=== PATIENT | female | born 1945 | race Caucasian/White ===

== ENCOUNTER 2017-08-30 21:42 | Inpatient (IN) | payer MEDICARE ==
[~2017-08-30] VITALS: Ht 162.6 cm; Wt 118.9 kg
[~2017-08-30 21:42] MED LIST: AMITRIPTYLINE H25 MG PO; AMLODIPINE BESY10 MG PO; GEMFIBROZIL600 MG; HYDRALAZINE HCL25 MG PO; LABETALOL HCL100 MG PO; LORATADINE10 MG PO; LOSARTAN POTASS25 MG PO; METFORMIN HCL500 MG PO; METOPROLOL TART50 MG PO; NIFEDIPINE ER30 M1 PO; OMEPRAZOLE20 MG PO
[2017-08-30] MEDS ORDERED: ONDANSETRON HCL INJ 2 MG/ML VIAL IV STA (22:01)
[2017-08-30] MEDS ORDERED: MORPHINE SULFATE 2 MG/ML SYR IV STA (22:01)
[2017-08-30 23:24] LABS: BASOPHILS % 0.3 % (0.0-1.0); EOSINOPHILS # (AUTO) 0.1 (0.0-0.4); EOSINOPHILS % 0.3 % (0.0-6.0); HEMATOCRIT 42.6 % (34.2-44.1); HEMOGLOBIN 14.1 g/dL (12.0-16.0); LYMPHOCYTES # (AUTO) 1.6 (1.0-3.2); LYMPHOCYTES % 10.2 % (18.0-39.1); MEAN CORPUSCULAR HEMOGLOBIN 27.5 pg (28-32); MEAN CORPUSCULAR HGB CONC 33.1 g/dL (31-35); MEAN CORPUSCULAR VOLUME 83.2 fL (81-99); MONOCYTES # (AUTO) 0.4 (0.2-0.8); MONOCYTES % 2.4 % (4.4-11.3); NEUTROPHILS # (AUTO) 13.3 (2.1-6.9); NEUTROPHILS % 86.3 % (38.7-80.0); PLATELET COUNT 280 x10e3/uL (140-360); RED BLOOD COUNT 5.12 x10e6/uL (3.6-5.1); RED CELL DISTRIBUTION WIDTH 13.5 % (11.7-14.4)
[2017-08-30 23:39] LABS: INR 1.23; PROTHROMBIN TIME 14.6 seconds (11.9-14.5)
[2017-08-30 23:40] LABS: PARTIAL THROMBOPLASTIN TIME 26.9 seconds (23.8-35.5)
--- NOTE | 2017-08-30 23:44 | Diagnostic Imaging Report ---
EXAMINATION: Head CT without contrast. HISTORY:Fall. COMPARISON:CT brain from 05/12/2016. TECHNIQUE: Multidetector axial images were obtained from the foramen magnum to the vertex without contrast. The images were reconstructed using brain and bone algorithms. Thin section brain images were reformatted into coronal and sagittal planes. Intravenous contrast: None IMAGE QUALITY: Acceptable. FINDINGS: Skull/scalp: No lytic or blastic. lesions. No surgical changes. Parenchyma: Unchanged multifocal lacunar infarcts particularly bilateral striata capsular region, left posterior limb of internal capsule, left caudate head, kimble radiata and bilateral centrum semiovale. Nonspecific bilateral frontoparietal patchy white matter hypodensity are likely related to small vessel ischemic changes. No acute hemorrhage, mass or acute major vascular territorial infarct. Arteries: No density suggestive of thrombosis. Dural sinuses: No abnormal density suggestive of thrombosis. Ventricles: Mild compensated dilatation due to volume loss. No hydrocephalus. Extra-axial spaces: Generalized age-related cerebral volume loss. Brain volume: Normal for age. Craniocervical junction: No mass, Chiari malformation, or basilar invagination. Sella: No mass. Paranasal/mastoid sinuses: Imaged portions unremarkable. IMPRESSION: No acute intracranial abnormality. No change since CT brain from 05/12/2016. Chronic findings: 1. Multifocal chronic lacunar infarcts as detailed above. 2. Mild supratentorial white matter microvascular ischemic changes. 3. Mild generalized cerebral volume loss. Signed by: Dr. Hillary Gary M.D. on 08/30/2017 11:40 PM
--- NOTE | 2017-08-30 23:49 | Diagnostic Imaging Report ---
History: Fall. Comparison studies: None Technique: Axial images were obtained through the cervical region.. Coronal and sagittal images reconstructed from the axial data.. Intravenous contrast: None Findings: Fractures: None. Soft tissue injuries: None. Atlantoaxial articulation: Intact. Alignment: Loss of normal cervical lordosis is either positional or due to muscle spasm. No scoliosis. Cervicomedullary junction: No abnormalities. The foramen magnum is patent. Soft tissues: No abnormalities. Vertebrae: No fractures, infection or neoplasm. Degenerative changes: C4-C5: Mild degenerative disc disease. Mild right foraminal stenosis due to uncovertebral arthrosis. C5-C6: Moderate degenerative disc disease. Posterior disc osteophyte complex results in mild canal stenosis. Mild right and moderate left foraminal stenosis due to facet and uncovertebral arthrosis. IMPRESSION: 1. No acute cervical spine fracture. Loss of normal cervical lordosis is either positional or due to muscle spasm. 2. Ligament, spinal cord and or vascular abnormalities cannot be excluded on the basis of this examination. 3. Cervical spondylosis as detailed above. Signed by: Dr. Hillary Gary M.D. on 08/30/2017 11:46 PM
[2017-08-30 23:50] LABS: ALANINE AMINOTRANSFERASE 13 IU/L (0-55); ALBUMIN 3.8 g/dL (3.5-5.0); ALBUMIN/GLOBULIN RATIO 1.2 (0.8-2.0); ALKALINE PHOSPHATASE 65 IU/L (40-150); ANION GAP 15.8 mmol/L (8-16); BLOOD UREA NITROGEN 23 mg/dL (7-26); BUN/CREATININE RATIO 22 (6-25); CALCIUM 10.1 mg/dL (8.4-10.2); CARBON DIOXIDE 23 mmol/L (22-29); CHLORIDE 104 mmol/L (98-107); CREATINE KINASE 28 IU/L (29-168); CREATININE, SERUM 1.03 mg/dL (0.57-1.11); EST GLOMERULAR FILTRATION RATE 53 ML/MIN (60-); GLUCOSE 162 mg/dL (74-118); MAGNESIUM 1.9 MG/DL (1.3-2.1); POTASSIUM 3.8 mmol/L (3.5-5.1); SODIUM 139 mmol/L (136-145)
--- NOTE | 2017-08-30 23:57 | Diagnostic Imaging Report ---
EXAM: SHOULDER RIGHT COMPLETE, AP internal and external rotation INDICATION: Fall, right shoulder pain COMPARISON: Right shoulder x-ray May 12, 2016 FINDINGS: BONES: Acute fracture of the right humeral neck with extension through the greater tubercle with displacement. JOINTS: Inferior displacement of the humeral head in relation to the glenoid. SOFT TISSUES: Normal IMPRESSION: Acute fracture of the right humeral neck with extension through the greater tubercle with displacement. Inferior displacement of the humeral head in relation to the glenoid could be due to dislocation or extensive joint effusion/hemarthrosis. Signed by: Dr. Essie Arce M.D. on 08/30/2017 11:54 PM
--- NOTE | 2017-08-30 23:59 | Diagnostic Imaging Report ---
EXAM: CHEST 2 VIEWS, PA and lateral INDICATION: Status post fall, right shoulder pain COMPARISON: Right shoulder x-ray August 30, 2017 FINDINGS: LINES/TUBES: None LUNGS: No consolidations or edema. Bibasilar linear scarring or atelectasis. PLEURA: No effusions or pneumothorax. HEART AND MEDIASTINUM: Mild cardiomegaly. BONES AND SOFT TISSUES: Partially visualized inferior displacement of the right humeral head in relation to the glenoid. Right humeral neck fracture better seen on dedicated shoulder x-ray. IMPRESSION: Mild cardiomegaly. Partially visualized inferior displacement of the right humeral head in relation to the glenoid. Right humeral neck fracture better seen on dedicated shoulder x-ray. Signed by: Dr. Essie Arce M.D. on 08/30/2017 11:56 PM
[2017-08-31] MEDS ORDERED: MORPHINE SULFATE 2 MG/ML SYR IV STA (01:07)
[2017-08-31] MEDS ORDERED: ONDANSETRON HCL INJ 2 MG/ML VIAL IV STA (01:07)
[2017-08-31 02:14] LABS: CLARITY,URINE CLOUDY (CLEAR); COLOR,URINE YELLOW (YELLOW); KETONES,URINE 3+ (NEGATIVE); LEUKOCYTE ESTERASE ,URINE NEGATIVE (NEGATIVE); NITRITE,URINE NEGATIVE (NEGATIVE); PROTEIN,URINE DIPSTICK 1+ (NEGATIVE); URINE UROBILINOGEN 0.2 mg/dL (0.2 - 1)
[2017-08-31 02:15] LABS: BILIRUBIN,URINE 1+ (NEGATIVE)
[2017-08-31] MEDS: HYDROMORPHONE 1MG/1ML INJ IV PRN ×4 (02:25→21:23)
[2017-08-31 02:33] LABS: AMORPHOUS SEDIMENT,URINE MANY (FEW); BACTERIA,URINE RARE /HPF; EPITHELIAL CELLS,URINE RARE /LPF
[2017-08-31] MEDS ORDERED: FAMOTIDINE 20 MG/2 ML VIAL IV SCH (02:45)
[2017-08-31] MEDS ORDERED: DEXTROSE 50% SYRINGE 50 ML IV PRN (02:45)
[2017-08-31 04:32] VITALS: BP 162/90
[2017-08-31] MEDS: INSULIN REGULAR, HUMAN 100 UNIT/1 ML 3ML VIAL SQ SCH ×4 (07:30→22:09)
[2017-08-31 07:32] VITALS: BP 139/77
[2017-08-31 07:41] LABS: CREATINE KINASE MB 0.6 ng/mL (0-5.0)
[2017-08-31 07:45] VITALS: BP 139/77
[2017-08-31] MEDS ORDERED: GEMFIBROZIL 600 MG TAB PO SCH (08:00)
[2017-08-31] MEDS: FAMOTIDINE 20 MG/2 ML VIAL IV SCH ×2 (08:00→20:34)
--- NOTE | 2017-08-31 08:48 | Consultation ---
DATE OF CONSULTATION: August 31, 2017 CHIEF COMPLAINT: Right arm pain. HISTORY OF PRESENT ILLNESS: The patient is a 72-year-old lady who states that she fell in her kitchen. She was unable to get up. She lives with her sister. Her sister was unable to lift her up as well. She was brought into the emergency room complaining of isolated right shoulder pain. She was admitted for apparent pain control. PAST MEDICAL HISTORY: Borderline diabetic and hypertension. PREVIOUS SURGERIES: Hysterectomy and tonsillectomy. MEDICATIONS: See admission medicine reconciliation list. ALLERGIES: PENICILLIN AND ENALAPRIL. SOCIAL HISTORY: She lives with her sister. She is . She has 2 sons. She does not smoke but was a former smoker. She occasionally drinks alcohol. PHYSICAL EXAMINATION: She is an obese female who is in no obvious distress if her right arm is in a sling. There is swelling and some mild bruising around the proximal arm. Distal motor and sensory exam is grossly normal. We did not test the motion. LABORATORY STUDIES: X-rays show a 4-part comminuted right proximal humerus fracture. IMPRESSION: Right proximal humerus fracture. The findings and treatment options were discussed with the patient. This is a challenging fracture considering her size. The standard of care is to allow the swelling to diminish and to electively proceed with a right shoulder hemiarthroplasty. The risks and benefits of the procedure were explained. Permanent limitations in range of motion were explained. The patient states she understands. I have given her my clinic information. She will need to come to see me in the office early next week for scheduling the surgery within the next week or 2. Thank you for the consultation. Job#: [id number]
[2017-08-31] MEDS ORDERED: LOSARTAN POTASSIUM 25 MG TAB PO SCH (09:00)
[2017-08-31] MEDS ORDERED: LABETALOL HCL 100 MG TAB PO SCH (09:00)
[2017-08-31] MEDS ORDERED: HYDRALAZINE HCL 25 MG TAB PO SCH (09:00)
[2017-08-31] MEDS ORDERED: NIFEDIPINE CR 30 MG TAB PO SCH (09:00)
[2017-08-31] MEDS: LORATADINE 10 MG TAB PO SCH (09:27)
[2017-08-31] MEDS: PANTOPRAZOLE SOD 40 MG TABEC PO SCH (09:28)
[2017-08-31] MEDS ORDERED: LABETALOL HCL200 MG PO (10:13)
[2017-08-31] MEDS ORDERED: GABAPENTIN100 MG PO (10:13)
[2017-08-31] MEDS ORDERED: PRAVASTATIN SOD20 MG PO (10:13)
[2017-08-31] MEDS ORDERED: XAREL PO (10:25)
--- NOTE | 2017-08-31 11:39 | Consultation ---
DATE OF CONSULTATION: August 31, 2017 CARDIOLOGY CONSULTATION Thank you so much for asking me to see this nice lady again in consultation. Ms. Mullins is a charming, 72-year-old woman known to me from previous evaluations in the office, who presented to the emergency room after falling in her kitchen and fracturing her right shoulder. HISTORY OF PRESENT ILLNESS: The patient reports that she slipped on some liquid on the floor and extended her right arm to catch herself and "heard it snap." She denies any syncope. PAST MEDICAL HISTORY: Significant for hypertension and type-2 adult-onset diabetes. She was hospitalized at [facility] in April of 2016 with diagnoses of hypertensive encephalopathy, rhabdomyolysis, renal insufficiency, type-2 adult-onset diabetes. HOME MEDICATIONS: Please see the chart. The patient cannot remember her home medications. SURGICAL HISTORY: She reports a remote appendectomy. REVIEW OF SYSTEMS: Cardiac: The current chart indicates a history of AFib taking Xarelto, but the patient cannot confirm this for me, and my office records are not currently available. PHYSICAL EXAMINATION GENERAL: Exam at this time shows a large, obese woman who is 5 feet 4 inches tall and weighs 254 pounds. VITALS: Blood pressure 139/77. HEENT: Unremarkable. NECK: No jugular venous distention. THORAX: Heart sounds S1 and S2 are equal. No murmurs, gallops or rubs. Lungs are clear. ABDOMEN: Markedly protuberant. EXTREMITIES: No cyanosis, clubbing or edema. Presenting EKG: Probably sinus rhythm but baseline artifact precludes good diagnosis. Cannot entirely exclude atrial fibrillation. BUN 23, creatinine 1.0. Glucose 162. Hemoglobin 14.1. INR 1.23. X-ray suggests complex fracture of the right shoulder. ASSESSMENT 1. Complex shoulder fracture. 2. Hypertension. 3. Currently not in atrial fibrillation as telemetry strips and new EKG show sinus rhythm. 4. Diabetes. PLAN: I believe she has standard surgical risks. Will review office records when the computer system is working. Thank you for asking me to see her in consultation. Job#: [id number]
[2017-08-31 11:54] VITALS: BP 129/59
[2017-08-31] MEDS ORDERED: ASPIRIN81 MG PO (12:58)
[2017-08-31] MEDS ORDERED: IBANDRONATE SO150 MG PO (12:58)
[2017-08-31] MEDS ORDERED: FAMOTIDINE20 MG PO (12:58)
[2017-08-31] MEDS ORDERED: PROAIR HFA INH8.5 GM INH (12:58)
[2017-08-31] MEDS ORDERED: XARELTO20 MG PO (12:58)
[2017-08-31] MEDS: GABAPENTIN 100 MG CAP PO SCH ×2 (14:45→20:34)
[2017-08-31 15:33] LABS: CREATINE KINASE MB 0.5 ng/mL (0-5.0)
[2017-08-31 16:10] VITALS: BP 118/61
[2017-08-31] MEDS: LABETALOL HCL 200 MG TAB PO SCH (16:39)
--- NOTE | 2017-08-31 17:13 | History and Physical ---
CHIEF COMPLAINT: Fall with right shoulder pain. HISTORY OF PRESENT ILLNESS: This is a 72-year-old woman with a history of ambulatory dysfunction using a walker and paroxysmal atrial fibrillation on Xarelto, now having hurrying to the bathroom, lost her urine, and while still in the kitchen slipped on her own urine falling onto her right shoulder with immediate pain. She came to the hospital and she was found to have fracture and dislocation. She was admitted for further evaluation and management. PAST MEDICAL HISTORY: Diabetes mellitus type 2, hypertension, hypertensive emergency, hypertensive encephalopathy, peripheral neuropathy, diabetic neuropathy, rhabdomyolysis, physical deconditioning and altered mood, sleep deprivation, morbid obesity, electrolyte derangement, culture-negative urinary tract infection, brain lacunar infarct , abnormal gait due to impairment of balance, autonomic instability, skin moles, sleep apnea with CPAP at night, hyperlipidemia, borderline low vitamin B12 level, osteoporosis in November 2016 and paroxysmal atrial fibrillation in March 2017. PAST SURGICAL HISTORY: Hysterectomy in 2014. ALLERGIES: PER ELECTRONIC MEDICAL RECORDS. FAMILY/SOCIAL HISTORY: The patient is . She lives with her sister. She has 2 children. No alcohol, illicits or cigarettes. Mother had leukemia and is . Father had Parkinson disease and is . MEDICATIONS: Per electronic medical records. REVIEW OF SYSTEMS: Denies any dizziness, chest pain, shortness of breath, fever or chills or sweats, no nausea, vomiting or diarrhea, headache, blurry vision. PHYSICAL EXAMINATION VITAL SIGNS: Have been reviewed. GENERAL APPEARANCE: A tired-appearing woman resting in the bed. HEENT: Anicteric. Pupils responsive to light. No oral lesions. CARDIOVASCULAR: Normal S1 and S2. LUNGS: Moderate breath sounds, ABDOMEN: Soft and nontender. Nondistended. EXTREMITIES: She has her right arm in sling. She has right shoulder tenderness. No edema of the lower extremities. SKIN: Dry. PSYCHIATRIC: Flat affect. LABS: Reviewed. MEDICATIONS: Reviewed. ASSESSMENT: A 72-year-old woman. 1. Acute right shoulder fracture. 2. Acute right shoulder dislocation. 3. Acute kidney injury. 4. Chronic brain infarct. 5. Ambulatory/gait disturbance. 6. Paroxysmal atrial fibrillation. 7. Diabetes mellitus type 2. 8. Hypertension. 9. Gastroesophageal reflux disease. 10. Sleep apnea on CPAP at night. 11. Osteoporosis on bisphosphonate. 12. Diabetic neuropathy/peripheral neuropathy. PLAN: 1. Pain control. 2. Orthopedic consultation. 3. She took Xarelto last night, will need to wait prior to surgery. 4. Cardiology consultation for preoperative evaluation. 5. Rate control with medication. 6. CPAP at night. 7. Gabapentin for peripheral neuropathy. 8. Will need to continue bisphosphonate once she is discharged for continued treatment of osteoporosis and also calcium, will add calcium with vitamin D. 9. Will obtain hemoglobin A1c and lipid panel. 10. Will consult Dr. Mcmahon for possible inpatient rehab services. Job#: [id number] GH
[2017-08-31 20:00] VITALS: BP 135/66
[2017-08-31] MEDS: PRAVASTATIN 20 MG TAB PO SCH (20:35)
[2017-08-31] MEDS: OYST-CAL-D 500MG TABLET PO SCH (20:35)
[2017-09-01] VITALS (8 sets, daily range): BP systolic 138–195; BP diastolic 69–87
[2017-09-01] MEDS: HYDROMORPHONE 1MG/1ML INJ IV PRN ×4 (01:22→19:54)
[2017-09-01 05:43] LABS: BASOPHILS % 0.4 % (0.0-1.0); EOSINOPHILS # (AUTO) 0.1 (0.0-0.4); EOSINOPHILS % 0.6 % (0.0-6.0); HEMATOCRIT 34.8 % (34.2-44.1); HEMOGLOBIN 11.6 g/dL (12.0-16.0); LYMPHOCYTES # (AUTO) 3.2 (1.0-3.2); LYMPHOCYTES % 31.2 % (18.0-39.1); MEAN CORPUSCULAR HEMOGLOBIN 28.4 pg (28-32); MEAN CORPUSCULAR HGB CONC 33.3 g/dL (31-35); MEAN CORPUSCULAR VOLUME 85.1 fL (81-99); MONOCYTES # (AUTO) 0.9 (0.2-0.8); MONOCYTES % 8.4 % (4.4-11.3); NEUTROPHILS # (AUTO) 6.1 (2.1-6.9); NEUTROPHILS % 58.9 % (38.7-80.0); PLATELET COUNT 230 x10e3/uL (140-360); RED BLOOD COUNT 4.09 x10e6/uL (3.6-5.1); RED CELL DISTRIBUTION WIDTH 14.3 % (11.7-14.4)
[2017-09-01 07:16] LABS: ALBUMIN 3.2 g/dL (3.5-5.0); ALBUMIN/GLOBULIN RATIO 1.1 (0.8-2.0); CALCIUM 9.5 mg/dL (8.4-10.2); CHOL/HDL RATIO 3.7 (3.0-3.6); CREATININE, SERUM 2.71 mg/dL (0.57-1.11)
[2017-09-01] MEDS: PANTOPRAZOLE SOD 40 MG TABEC PO SCH (07:55)
[2017-09-01] MEDS: INSULIN REGULAR, HUMAN 100 UNIT/1 ML 3ML VIAL SQ SCH ×4 (07:55→21:24)
[2017-09-01] MEDS: GABAPENTIN 100 MG CAP PO SCH ×3 (08:36→21:18)
[2017-09-01] MEDS: FAMOTIDINE 20 MG/2 ML VIAL IV SCH ×2 (08:36→21:18)
[2017-09-01] MEDS: LORATADINE 10 MG TAB PO SCH (08:36)
[2017-09-01] MEDS: OYST-CAL-D 500MG TABLET PO SCH ×3 (08:36→21:18)
[2017-09-01] MEDS: LABETALOL HCL 200 MG TAB PO SCH ×2 (08:36→17:00)
[2017-09-01] MEDS ORDERED: LOSARTAN POTASSIUM 25 MG TAB PO SCH (09:00)
[2017-09-01] MEDS ORDERED: LOSARTAN POTASSIUM 100 MG TAB PO SCH (09:00)
[2017-09-01] MEDS: ONDANSETRON HCL INJ 2 MG/ML VIAL IV PRN ×3 (09:11→19:54)
[2017-09-01] MEDS ORDERED: SODIUM CHLORIDE 0.45% 1,000 ML IV ONE (13:45)
[2017-09-01] MEDS: SODIUM CHLORIDE 0.9% 1000ML 1,000 ML IV SCH (17:00)
--- NOTE | 2017-09-01 17:57 | Progress Note ---
DATE: September 01, 2017 PROGRESS NOTE TIME OF SERVICE: 05:00 p.m. SUBJECTIVE: Overnight, no events. Pain is controlled, is about 5/10. REVIEW OF SYSTEMS: Denies any dizziness, chest pain, shortness of breath. Denies any fever, chills, sweats. Denies any back pain, headache. PHYSICAL EXAMINATION VITAL SIGNS: Have been reviewed. Blood pressure 188/74, now 138/96. GENERAL APPEARANCE: A tired-appearing woman resting in bed. HEENT: Anicteric. CARDIOVASCULAR: Normal S1, S2. LUNGS: She has moderate breath sounds. ABDOMEN: Soft, nontender, nondistended. EXTREMITIES: She has right arm in a sling. She has right shoulder tenderness. She had no edema of the lower extremities. SKIN: Dry. PSYCHIATRIC: Flat affect. LABS: Reviewed. MEDICATIONS: Reviewed. ASSESSMENT: A 72-year-old woman 1. Acute right shoulder fracture. 2. Acute right shoulder dislocation. 3. Acute kidney injury. 4. Chronic brain infarct. 5. Ambulatory/gait disturbance. 6. Hypersomnolence. 7. Paroxysmal atrial fibrillation. 8. Diabetes mellitus type 2. 9. Hypertension. 10. Sleep apnea on CPAP at night. 11. Osteoporosis on bisphosphonate. 12. Diabetic neuropathy/peripheral neuropathy. PLAN 1. Continue pain control. 2. Continue medication management. 3. Continue to hold Xarelto. 4. Continue CPAP at night. 5. Will need continue treatment for osteoporosis once discharged. 6. Continue calcium with vitamin D. 7. Leukocytosis has resolved. 8. Start IV fluids normal saline at 100 mL now and followup labs data this evening for acute kidney injury. 9. Blood pressure control. We will titrate beta darnell and other medications. 10. Control pain. 11. Continue PPI. 12. Would benefit from acute rehab unit after management of fracture. Job#: [id number] DEREJE
--- NOTE | 2017-09-01 18:30 | Consultation ---
DATE OF CONSULTATION: September 01, 2017 Thank you, Dr. Colbert, for asking me to see Mrs. Mullins in consultation. REASON FOR CONSULTATION 1. A 4-part comminuted right proximal humeral fracture. 2. Obesity. 3. Hypertension. 4. Borderline diabetic. HISTORY: A 72-year-old female who fell in her kitchen and unable to get up. Found to have a complex right shoulder fracture. Seen by Dr. Tatum and wanted to delay surgery until the swelling went down. The patient has hypertension, as well as some diabetes and morbidly obese. I am being asked to evaluate her. PAST MEDICAL HISTORY: History of diabetes, hypertension, hypertensive encephalopathy, peripheral neuropathy, diabetic neuropathy, rhabdomyolysis, deconditioning, altered mental status, history of brain infarct in the past, obesity, history of paroxysmal atrial fibrillation. SURGERIES: Include hysterectomy. ALLERGIES: PENICILLIN AND ENALAPRIL. FAMILY HISTORY: Father had Parkinson disease. Mother had leukemia. SOCIAL HISTORY: Lives with her sister in a 1-story home. Was fairly ambulatory prior to admission. HABITS: Nonsmoker and nondrinker. REVIEW OF SYSTEMS GENERAL: Denies any fevers or chills. HEENT: Eyes: Denies. Ears: Denies. Oral: Denies. NECK: Denies. CARDIAC: Denies. LUNGS: Denies. GI: Denies. : Denies. NEUROLOGIC: Has a history of neuropathy. History of old stroke. White cell count of 10.26, hemoglobin 11.6, hematocrit 34.8, and platelets of 230,000. Sodium 135, potassium 4, BUN 25, creatinine 2.71. Brain CT on August 30, 2017, shows multifocal chronic lacunar infarcts, mild supratentorial white matter, microvascular ischemic changes, generalized cerebral volume loss. C-spine CT with no acute cervical spine fracture. Loss of normal cervical lordosis. Chest x-ray with mild cardiomegaly. Shoulder fracture of right humeral neck with extension to the greater tubercle with displacement. PHYSICAL EXAMINATION GENERAL: The patient is awake, alert and oriented times 3, but she did have some problems processing . Tried to put a straw to the top of the drink, and she could not put it in the right place even after I showed her where to put the straw. She still did not put it in the right place. However, she is oriented times 3. Gaze is conjugant. Oral: Tongue is midline. NECK: Supple. HEART: Regular. LUNGS: Fair air entry. EXTREMITIES: Has a sling on the right arm. Function of the right shoulder and left arm, as well as limited range of motion of the lower extremities. Has some diminished sensation of the legs bilaterally. Neurovascular status is intact to the right hand. Some mild edema to the right hand, but she can still squeeze her right hand. Manual muscle testing showed flexion and extension was not tested, and neither was elbow flexion and extension. Spice Fumigator was 0/5 strength on the right. The left upper extremity demonstrated 4/5 strength throughout. The lower extremities demonstrated 4 to 4-/5 strength bilaterally. ABDOMEN: Obese. IMPRESSION 1. Right humeral fracture, complicated. 2. The patient with a history of cerebrovascular accident with significant impairment, probably a cognition, but also with extreme incoordination to the upper extremities. 3. Obesity. 4. Hypertension. 5. Diabetes. 6. Diabetic neuropathy. 7. Hypertension. PLAN: She will need surgery. She said she will be going for surgery tomorrow. Will see. After that, will yield to get a better idea of what she can and cannot do. Level of rehab will be dependent on what her level of function is. Thank you once again for allowing me to participate in the care of this pleasant, but unfortunate patient. Job#: [id number] CANDACE
[2017-09-01] MEDS: PRAVASTATIN 20 MG TAB PO SCH (21:18)
[2017-09-01 22:37] LABS: ANION GAP 14.5 mmol/L (8-16); CALCIUM 9.8 mg/dL (8.4-10.2); CREATININE, SERUM 1.99 mg/dL (0.57-1.11); POTASSIUM 4.5 mmol/L (3.5-5.1)
[2017-09-02] VITALS (7 sets, daily range): BP systolic 127–180; BP diastolic 77–98
[2017-09-02] MEDS: SODIUM CHLORIDE 0.9% 1000ML 1,000 ML IV SCH ×3 (05:03→23:31)
[2017-09-02] MEDS: ONDANSETRON HCL INJ 2 MG/ML VIAL IV PRN ×3 (05:04→17:16)
[2017-09-02] MEDS: HYDROMORPHONE 1MG/1ML INJ IV PRN ×3 (05:04→17:16)
[2017-09-02] MEDS: PANTOPRAZOLE SOD 40 MG TABEC PO SCH (07:45)
[2017-09-02] MEDS: INSULIN REGULAR, HUMAN 100 UNIT/1 ML 3ML VIAL SQ SCH ×4 (07:46→22:00)
[2017-09-02] MEDS: LORATADINE 10 MG TAB PO SCH (08:24)
[2017-09-02] MEDS: FAMOTIDINE 20 MG/2 ML VIAL IV SCH ×2 (08:24→21:07)
[2017-09-02] MEDS: LABETALOL HCL 200 MG TAB PO SCH ×2 (08:24→16:05)
[2017-09-02] MEDS: OYST-CAL-D 500MG TABLET PO SCH ×3 (08:24→21:07)
[2017-09-02] MEDS: GABAPENTIN 100 MG CAP PO SCH ×3 (08:24→21:07)
--- NOTE | 2017-09-02 13:57 | Progress Note ---
DATE: September 02, 2017 MEDICINE PROGRESS NOTE TIME OF SERVICE: 12:55. SUBJECTIVE: Overnight, no acute events. REVIEW OF SYSTEMS: Patient denies any chest pain or shortness of breath. Without report of dizziness, headache, fever, chills, sweats, nausea, vomiting, diarrhea or leg pain. OBJECTIVE VITAL SIGNS: T 97.1, P 80, respirations 18, BP 175/90, O2 sat 91% on room air. GENERAL APPEARANCE: This is a very tired elderly woman resting supine in bed. HEENT: Normocephalic. Nares patent. Oral mucosa moist and intact. Trachea midline. CARDIOVASCULAR: S1 and S2 appreciated without clicks, murmurs or rubs. LUNGS: Moderate breath sounds in all garcia with fair excursion. ABDOMEN: Soft, nontender and nondistended. EXTREMITIES: Right shoulder tenderness without edema to distal right hand. Right arm across chest. Moves fingers. Capillary refill less than 3 seconds. No edema in bilateral lower extremities. SKIN: Dry. PSYCHIATRIC: Flat affect. LABS: Potassium and lytes reviewed, continue with elevated BUN and creatinine. MEDICATIONS: Labetalol 200 mg p.o. b.i.d., Neurontin 100 mg p.o. t.i.d., Claritin 10 mg p.o. daily, q.12 h. IV Pepcid, Protonix 40 mg a.c. breakfast, IV fluid normal saline at 100 mL per hour, p.r.n. acetaminophen, p.r.n. D50, p.r.n. Dilaudid for pain, p.r.n. Zofran. ASSESSMENT AND PLAN: This is a 72-year-old woman with 1. Acute right shoulder fracture and dislocation. After a discussion with patient, sister, and RN at bedside, surgical intervention pending reduction of swelling prior to surgical intervention per their discussion with surgeon. 2. Acute kidney injury. We will continue IV fluids, follow up values in the morning. 3. Chronic brain infarct. 4. Ambulatory/gait disturbance. Physiatry consult noted. Further intervention for rehab pending surgical intervention. 5. Hypersomnolence. Judicious pain management. 6. Paroxysmal atrial fibrillation. Telemetry monitoring. 7. Diabetes mellitus type 2. Hemoglobin A1c is 5.4. Triglycerides 135. Cholesterol 168. 8. Hypertension. Beta darnell titrated; we will consider additional/titration of medications. 9. Sleep apnea with continuous positive airway pressure at night. Continue CPAP. 10. Osteoporosis, on bisphosphonate. Continue Os-Dedrick at this time. 11. Diabetic neuropathy/peripheral neuropathy. 12. Peripheral access, proton pump inhibitor and sequential compression devices. 13. Disposition. Follow up values in the a.m., pending surgical intervention prior to further rehab interventions. Follow up in a.m. Dictated by: Yoel Aviles NP Job#: [id number] EV
[2017-09-02] MEDS: AMIODARONE HCL 200 MG TAB PO SCH ×2 (16:02→23:34)
[2017-09-02] MEDS: PRAVASTATIN 20 MG TAB PO SCH (21:07)
[2017-09-02] MEDS: CEFTRIAXONE SOD 1 GM VIAL IV SCH (21:07)
[2017-09-03] VITALS (7 sets, daily range): BP systolic 158–199; BP diastolic 77–117
[2017-09-03] MEDS: ACETAMINOPHEN 325 MG TAB PO PRN (00:17)
[2017-09-03] MEDS: SODIUM CHLORIDE 0.9% 1000ML 1,000 ML IV SCH ×2 (05:37→15:45)
[2017-09-03 06:19] LABS: ANION GAP 11.1 mmol/L (8-16); CALCIUM 9.6 mg/dL (8.4-10.2); CREATININE, SERUM 1.1 mg/dL (0.57-1.11); POTASSIUM 4.1 mmol/L (3.5-5.1)
[2017-09-03] MEDS: AMIODARONE HCL 200 MG TAB PO SCH ×3 (06:47→22:03)
[2017-09-03] MEDS: INSULIN REGULAR, HUMAN 100 UNIT/1 ML 3ML VIAL SQ SCH ×4 (07:30→20:20)
[2017-09-03] MEDS: PANTOPRAZOLE SOD 40 MG TABEC PO SCH (07:40)
[2017-09-03] MEDS: LABETALOL HCL 200 MG TAB PO SCH ×2 (07:41→17:01)
[2017-09-03] MEDS: GABAPENTIN 100 MG CAP PO SCH ×3 (08:05→20:19)
[2017-09-03] MEDS: FAMOTIDINE 20 MG/2 ML VIAL IV SCH ×2 (08:05→20:19)
[2017-09-03] MEDS: OYST-CAL-D 500MG TABLET PO SCH ×3 (08:05→20:19)
[2017-09-03] MEDS: LORATADINE 10 MG TAB PO SCH (08:05)
[2017-09-03] MEDS: HYDROCODONE/APAP 5MG-325MG TAB PO PRN ×3 (11:01→22:04)
--- NOTE | 2017-09-03 12:06 | Cardiology Report ---
DATE OF STUDY: September 02, 2017 ECHOCARDIOGRAM ATTENDING PHYSICIAN: Rizwana Bledsoe MD M-MODE: Normal chamber sizes. Left ventricular hypertrophy. Normal contractility. Normal mitral and aortic valves. No pericardial effusion. SECTOR SCAN: Normal chamber sizes. Left ventricular hypertrophy. Normal contractility. Normal mitral, aortic and tricuspid valves. No pericardial effusion. CARDIAC DOPPLER STUDY WITH COLOR: Trace mitral regurgitation. Trace tricuspid regurgitation. Pulmonary artery systolic pressure estimated at 31 mmHg. CONCLUSIONS: 1. Left ventricular hypertrophy with ejection fraction of approximately 60%. 2. Trace mitral and tricuspid regurgitation, probably not clinically significant. Job#: [id number] EV cc:RIZWANA BLEDSOE MD
[2017-09-03] MEDS ORDERED: AMLODIPINE BESYLATE 10 MG TAB PO ONE (13:00)
[2017-09-03] MEDS ORDERED: CLONIDINE HCL 0.1 MG TAB PO SCH ×2 (18:00→21:00)
[2017-09-03] MEDS: PRAVASTATIN 20 MG TAB PO SCH (20:19)
[2017-09-03] MEDS: CEFTRIAXONE SOD 1 GM VIAL IV SCH (20:19)
[2017-09-04] VITALS (8 sets, daily range): BP systolic 142–177; BP diastolic 80–97
[2017-09-04] MEDS: SODIUM CHLORIDE 0.9% 1000ML 1,000 ML IV SCH ×2 (04:35→15:33)
[2017-09-04] MEDS: CLONIDINE HCL 0.1 MG TAB PO SCH ×3 (05:51→22:02)
[2017-09-04] MEDS: AMIODARONE HCL 200 MG TAB PO SCH ×3 (05:51→22:02)
[2017-09-04 06:11] LABS: BASOPHILS % 0.4 % (0.0-1.0); EOSINOPHILS # (AUTO) 0.2 (0.0-0.4); EOSINOPHILS % 1.9 % (0.0-6.0); HEMATOCRIT 32.1 % (34.2-44.1); HEMOGLOBIN 10.6 g/dL (12.0-16.0); LYMPHOCYTES # (AUTO) 1.8 (1.0-3.2); LYMPHOCYTES % 19.1 % (18.0-39.1); MEAN CORPUSCULAR HEMOGLOBIN 28.1 pg (28-32); MEAN CORPUSCULAR VOLUME 85.1 fL (81-99); MONOCYTES # (AUTO) 0.8 (0.2-0.8); MONOCYTES % 8.7 % (4.4-11.3); NEUTROPHILS # (AUTO) 6.5 (2.1-6.9); NEUTROPHILS % 69.6 % (38.7-80.0); PLATELET COUNT 223 x10e3/uL (140-360); RED BLOOD COUNT 3.77 x10e6/uL (3.6-5.1); RED CELL DISTRIBUTION WIDTH 13.3 % (11.7-14.4)
[2017-09-04 06:34] LABS: ANION GAP 9.9 mmol/L (8-16); BLOOD UREA NITROGEN 19 mg/dL (7-26); BUN/CREATININE RATIO 23 (6-25); CALCIUM 9.1 mg/dL (8.4-10.2); CARBON DIOXIDE 25 mmol/L (22-29); CHLORIDE 106 mmol/L (98-107); CREATININE, SERUM 0.82 mg/dL (0.57-1.11); EST GLOMERULAR FILTRATION RATE > 60 ML/MIN (60-); GLUCOSE 109 mg/dL (74-118); POTASSIUM 3.9 mmol/L (3.5-5.1); SODIUM 137 mmol/L (136-145)
[2017-09-04] MEDS: INSULIN REGULAR, HUMAN 100 UNIT/1 ML 3ML VIAL SQ SCH ×4 (07:30→20:33)
[2017-09-04] MEDS: PANTOPRAZOLE SOD 40 MG TABEC PO SCH (07:56)
[2017-09-04] MEDS: FAMOTIDINE 20 MG/2 ML VIAL IV SCH ×2 (09:06→20:33)
[2017-09-04] MEDS: AMLODIPINE BESYLATE 10 MG TAB PO SCH (09:06)
[2017-09-04] MEDS: GABAPENTIN 100 MG CAP PO SCH ×3 (09:06→20:33)
[2017-09-04] MEDS: LORATADINE 10 MG TAB PO SCH (09:06)
[2017-09-04] MEDS: OYST-CAL-D 500MG TABLET PO SCH ×3 (09:06→20:33)
[2017-09-04] MEDS: LABETALOL HCL 200 MG TAB PO SCH ×2 (09:06→18:01)
--- NOTE | 2017-09-04 09:27 | Progress Note ---
DATE: September 03, 2017 TIME: 7 p.m. OVERNIGHT: No events. REVIEW OF SYSTEMS: Denies any dizziness. VITAL SIGNS: Reviewed. PHYSICAL EXAMINATION GENERAL: A tired-appearing woman resting in bed. HEENT: Anicteric. CARDIOVASCULAR: Normal S1 and S2. LUNGS: Moderate breath sounds. ABDOMEN: Soft, nontender. EXTREMITIES: No edema. Right arm in a sling. SKIN: Dry. LABS: Reviewed. MEDICATIONS: Reviewed. ASSESSMENT AND PLAN: This is a 72-year-old woman. 1. Acute right shoulder fracture. 2. Acute right shoulder dislocation. 3. Acute kidney injury. 4. Chronic brain infarct. 5. Ambulatory/gait disturbance. 6. Hypersomnolence. 7. Paroxysmal atrial fibrillation. 8. Diabetes mellitus, type 2. 9. Hypertension. 10. Sleep apnea on CPAP at night. 11. Osteoporosis, on bisphosphonate. 12. Diabetic neuropathy/peripheral neuropathy. PLAN 1. Pain control. 2. Physical therapy pending. 3. Xarelto on hold. 4. CPAP at night. 5. If no surgery at this time and plan for elective procedure, then the patient can be transitioned to LTAC for care. If surgery is now, then plan for acute rehab thereafter. Job#: [id number]
--- NOTE | 2017-09-04 09:48 | Progress Note ---
DATE: September 04, 2017 TIME: 9 a.m. OVERNIGHT: No events. REVIEW OF SYSTEMS: Denies any dizziness, chest pain, shortness of breath, fever, chills or sweats. No nausea, vomiting, or diarrhea. PHYSICAL EXAMINATION VITAL SIGNS: Reviewed. GENERAL: A tired-appearing woman resting in bed. HEENT: Anicteric. CARDIOVASCULAR: Normal S1 and S2. LUNGS: Moderate breath sounds. ABDOMEN: Soft, nontender. EXTREMITIES: Right arm in a sling. SKIN: Dry. PSYCHIATRIC: Normal affect. LABS: Reviewed. MEDICATIONS: Reviewed. ASSESSMENT: This is a 72-year-old woman 1. Acute right shoulder fracture. 2. Acute right shoulder dislocation. 3. Acute kidney injury. 4. Chronic brain infarct. 5. Ambulatory/gait disturbance. 6. Hypersomnolence. 7. Paroxysmal atrial fibrillation. 8. Diabetes mellitus type 2. 9. Hypertension. 10. Sleep apnea, on continuous positive airway pressure at night. 11. Osteoporosis, on bisphosphonate. 12. Diabetic neuropathy. PLAN 1. Continue pain control. 2. Continue to hold Xarelto. 3. Continue CPAP at night. 4. Avoid any surgical plan. 5. Possible LTAC versus acute rehab unit. 6. Hemoglobin A1c was 5.4, LDL 96, and triglycerides 135. Job#: [id number]
[2017-09-04] MEDS: HYDROCODONE/APAP 5MG-325MG TAB PO PRN (09:55)
[2017-09-04] MEDS: CEFTRIAXONE SOD 1 GM VIAL IV SCH (20:33)
[2017-09-04] MEDS: PRAVASTATIN 20 MG TAB PO SCH (20:33)
[2017-09-05] VITALS (9 sets, daily range): BP systolic 137–193; BP diastolic 69–91
[2017-09-05 05:27] LABS: BASOPHILS # (AUTO) 0.1 (0.0-0.1); BASOPHILS % 0.5 % (0.0-1.0); EOSINOPHILS # (AUTO) 0.2 (0.0-0.4); EOSINOPHILS % 2.1 % (0.0-6.0); HEMATOCRIT 30.6 % (34.2-44.1); HEMOGLOBIN 10.2 g/dL (12.0-16.0); LYMPHOCYTES # (AUTO) 1.4 (1.0-3.2); LYMPHOCYTES % 15.7 % (18.0-39.1); MEAN CORPUSCULAR HGB CONC 33.3 g/dL (31-35); MEAN CORPUSCULAR VOLUME 84.1 fL (81-99); MONOCYTES # (AUTO) 0.8 (0.2-0.8); MONOCYTES % 8.3 % (4.4-11.3); NEUTROPHILS # (AUTO) 6.7 (2.1-6.9); PLATELET COUNT 247 x10e3/uL (140-360); RED BLOOD COUNT 3.64 x10e6/uL (3.6-5.1); RED CELL DISTRIBUTION WIDTH 13.3 % (11.7-14.4)
[2017-09-05 05:43] LABS: ANION GAP 10.9 mmol/L (8-16); BLOOD UREA NITROGEN 16 mg/dL (7-26); BUN/CREATININE RATIO 20 (6-25); CALCIUM 9.5 mg/dL (8.4-10.2); CARBON DIOXIDE 25 mmol/L (22-29); CHLORIDE 106 mmol/L (98-107); CREATININE, SERUM 0.79 mg/dL (0.57-1.11); EST GLOMERULAR FILTRATION RATE > 60 ML/MIN (60-); GLUCOSE 113 mg/dL (74-118); POTASSIUM 3.9 mmol/L (3.5-5.1); SODIUM 138 mmol/L (136-145)
[2017-09-05] MEDS: AMIODARONE HCL 200 MG TAB PO SCH ×2 (06:13→14:00)
[2017-09-05] MEDS: CLONIDINE HCL 0.1 MG TAB PO SCH ×3 (06:13→21:46)
[2017-09-05] MEDS: HYDROCODONE/APAP 5MG-325MG TAB PO PRN ×2 (06:13→21:43)
[2017-09-05] MEDS ORDERED: PROTONIX40 MG/ML PO (06:26)
[2017-09-05] MEDS ORDERED: Calcium Carbonate PO (06:26)
[2017-09-05] MEDS ORDERED: NORVASC10 MG PO (06:26)
[2017-09-05] MEDS ORDERED: CATAPRES0.1 MG PO (06:26)
[2017-09-05] MEDS ORDERED: Hydrocodone/Apap 5MG-325MG PO (06:26)
[2017-09-05] MEDS ORDERED: AMIODARONE HCL200 MG PO (06:26)
[2017-09-05] MEDS ORDERED: LABETALOL HCL 5 MG/ML 20ML VIAL IV NR (06:45)
[2017-09-05] MEDS: INSULIN REGULAR, HUMAN 100 UNIT/1 ML 3ML VIAL SQ SCH ×4 (07:30→20:53)
[2017-09-05] MEDS: PANTOPRAZOLE SOD 40 MG TABEC PO SCH (08:00)
[2017-09-05] MEDS: GABAPENTIN 100 MG CAP PO SCH ×3 (09:36→20:53)
[2017-09-05] MEDS: LORATADINE 10 MG TAB PO SCH (09:36)
[2017-09-05] MEDS: FAMOTIDINE 20 MG/2 ML VIAL IV SCH ×2 (09:36→20:53)
[2017-09-05] MEDS: OYST-CAL-D 500MG TABLET PO SCH ×3 (09:37→20:53)
[2017-09-05] MEDS: AMLODIPINE BESYLATE 10 MG TAB PO SCH (09:37)
[2017-09-05] MEDS: LABETALOL HCL 200 MG TAB PO SCH ×2 (09:37→17:38)
[2017-09-05] MEDS ORDERED: MAGNESIUM HYDROXIDE 30 ML UDC PO PRN (11:15)
[2017-09-05] MEDS: SENNOSIDES 8.6 MG TAB PO SCH ×2 (13:32→17:38)
[2017-09-05] MEDS: DOCUSATE SODIUM 100 MG CAP PO SCH ×2 (13:33→17:38)
[2017-09-05] MEDS: SODIUM CHLORIDE 0.9% 1000ML 1,000 ML IV SCH (14:00)
[2017-09-05] MEDS: ACETAMINOPHEN 325 MG TAB PO PRN (16:09)
[2017-09-05] MEDS: CEFTRIAXONE SOD 1 GM VIAL IV SCH (20:53)
[2017-09-05] MEDS: PRAVASTATIN 20 MG TAB PO SCH (20:53)
[2017-09-06] VITALS: BP 151/83
[2017-09-06] MEDS: SODIUM CHLORIDE 0.9% 1000ML 1,000 ML IV SCH ×3 (02:33→13:40)
[2017-09-06 04:00] VITALS: BP 178/96
[2017-09-06] MEDS: CLONIDINE HCL 0.1 MG TAB PO SCH ×2 (05:05→13:40)
[2017-09-06] MEDS: INSULIN REGULAR, HUMAN 100 UNIT/1 ML 3ML VIAL SQ SCH ×3 (07:30→16:26)
[2017-09-06 07:45] VITALS: BP 178/96
[2017-09-06 07:47] VITALS: BP 172/88
[2017-09-06] MEDS: DOCUSATE SODIUM 100 MG CAP PO SCH ×2 (07:49→16:26)
[2017-09-06] MEDS: AMLODIPINE BESYLATE 10 MG TAB PO SCH (07:49)
[2017-09-06] MEDS: LORATADINE 10 MG TAB PO SCH (07:49)
[2017-09-06] MEDS: OYST-CAL-D 500MG TABLET PO SCH ×2 (07:49→16:25)
[2017-09-06] MEDS: PANTOPRAZOLE SOD 40 MG TABEC PO SCH (07:49)
[2017-09-06] MEDS: FAMOTIDINE 20 MG/2 ML VIAL IV SCH (07:49)
[2017-09-06] MEDS: GABAPENTIN 100 MG CAP PO SCH ×2 (07:49→16:25)
[2017-09-06] MEDS: SENNOSIDES 8.6 MG TAB PO SCH ×2 (07:49→16:26)
[2017-09-06] MEDS: LABETALOL HCL 200 MG TAB PO SCH ×2 (07:50→16:26)
[2017-09-06] MEDS: HYDROCODONE/APAP 5MG-325MG TAB PO PRN ×2 (07:50→13:53)
[2017-09-06] MEDS: ACETAMINOPHEN 325 MG TAB PO PRN ×2 (11:26→16:26)
[2017-09-06 12:00] VITALS: BP 163/79
[2017-09-06] MEDS ORDERED: AMIODARONE HCL 200 MG TAB PO SCH (12:45)
[2017-09-06 16:05] VITALS: BP 195/95
[2017-09-06] MEDS ORDERED: RIVAROXABAN 20 MG TABLET PO SCH (17:00)
--- NOTE | 2017-09-07 08:45 | Progress Note ---
DATE: September 05, 2017 TIME: 7 a.m. OVERNIGHT: No events. REVIEW OF SYSTEMS: Denies dizziness, chest pain, shortness of breath, fever, chills, sweats, leg pain, back pain. PHYSICAL EXAMINATION VITAL SIGNS: Reviewed. GENERAL: A tired-appearing woman resting in bed. HEENT: Anicteric. CARDIOVASCULAR: Normal S1 and S2. LUNGS: Moderate breath sounds. ABDOMEN: Soft and nontender. EXTREMITIES: Right arm in sling. SKIN: Dry. PSYCHIATRIC: Normal affect. LABS: Reviewed. MEDICATIONS: Reviewed. ASSESSMENT: A 72-year-old woman with: 1. Acute right shoulder fracture. 2. Acute right shoulder dislocation. 3. Acute kidney injury. 4. Chronic brain infarct. 5. Ambulatory/gait disturbance. 6. Hypersomnolence. 7. Paroxysmal atrial fibrillation. 8. Diabetes mellitus, type 2. 9. Hypertension. 10. Sleep apnea, on CPAP at night. 11. Osteoporosis. 12. Diabetic neuropathy. PLAN 1. Continue pain control. 2. Continue CPAP. 3. Restarted Xarelto. 4. Hemoglobin A1c 5.4, LDL 96 and triglycerides 135. Job#: [id number] CANDACE
--- NOTE | 2017-09-07 08:59 | Discharge Summary ---
PRINCIPAL DIAGNOSES: 1. Acute right shoulder fracture. 2. Acute right shoulder dislocation. 3. Acute kidney injury. 4. Chronic brain infarct. 5. Ambulatory/gait disturbance. 6. Hypersomnolence. 7. Paroxysmal atrial fibrillation. SECONDARY DIAGNOSIS: Diabetes mellitus type 2. CHIEF COMPLAINT: Fall with pain in right shoulder. HISTORY OF PRESENT ILLNESS: A 72-year-old woman admitted for right shoulder pain. Please refer to H and P for further details. HOSPITAL COURSE: Patient found to have acute right shoulder fracture and acute right shoulder dislocation and acute kidney injury, received IV fluids, pain control. Orthopedic evaluated. They did not do any procedure. Patient was restarted on Xarelto and now transitioned to LTAC facility for continued care and plan to obtain elective procedure of the shoulder. She also has history of ambulatory dysfunction, hypersomnolence, and paroxysmal atrial fibrillation and diabetes mellitus type 2. during hospitalization. DISCHARGE MEDICATIONS: Per electronic medical record. Follow up with medical team at LTAC facility and plan for elective surgery soon. RIZWANA BLEDSOE MD Job#: [id number]
== END 2017-09-06 18:39 | DRG 563 ==
LOC: ER 21:42 → ERHOLD 08-31 02:38 → MED/SURG3 08-31 03:47 → OBSVTOIN 08-31 15:18
PROVIDERS: ADMIT Internal Medicine; ATTEND Internal Medicine
DX: S42.241A 4-part fracture of surgical neck of right humerus, initial encounter for closed fracture (principal); Z68.42 Body mass index [BMI] 45.0-49.9, adult; N17.9 Acute kidney failure, unspecified; W01.0XXA Fall on same level from slipping, tripping and stumbling without subsequent striking against object, initial encounter; I10 Essential (primary) hypertension; Z79.01 Long term (current) use of anticoagulants; I69.319 Unspecified symptoms and signs involving cognitive functions following cerebral infarction; I69.393 Ataxia following cerebral infarction; G47.10 Hypersomnia, unspecified; I48.0 Paroxysmal atrial fibrillation; G47.30 Sleep apnea, unspecified; R26.81 Unsteadiness on feet; Z79.4 Long term (current) use of insulin; E11.51 Type 2 diabetes mellitus with diabetic peripheral angiopathy without gangrene; E66.9 Obesity, unspecified; Y92.000 Kitchen of unspecified non-institutional (private) residence as the place of occurrence of the external cause; E78.5 Hyperlipidemia, unspecified
CPT/HCPCS: 36415; 51700; 70450; 71046; 72125; 80048; 80053; 80061; 81001; 82550; 82553; 82948; 83036; 83735; 84484; 85025; 85610; 85730; 87086; 93005; 93306; 97139; 99284; J0696; J1170; J2270; J2405; J7030

== ENCOUNTER 2018-01-25 15:23 | Inpatient (IN) | payer MEDICARE, OTHER ==
[~2018-01-25] VITALS: Ht 165.1 cm; Wt 112.5 kg
[~2018-01-25 15:23] MED LIST changes: -CLINDAMYCIN 600MG / 50ML 50 ML IV ONE; -COLACE100 M1 PO; -Calcium Carbonate 500MG Chew PO; -DEXAMETHASONE SOD PHOS INJ 4 MG/ML VIAL ONE; -DULCOLAX5 MG PO; -FENTANYL CITRATE/PF 100MCG/2 ML INJ ONE; -HYDROCODONE/APAP 7.5MG-325MG 1 EA TAB ONE; -HYDROMORPHONE 2MG/ML 2 MG/ML ML ONE; -LEVAQUIN500 MG PO; -LIDOCAINE HCL 2% LOCAL INJ 5 ML SDV VIAL INJ ONE; -MERREM500 MG IV; -MIDAZOLAM HCL 2 MG/2 ML VIAL ONE; -MILK OF MA400 MG/5 M PO; -MORPHINE SULFATE 2 MG/ML SYR ONE; -ONDANSETRON HCL INJ 2 MG/ML VIAL ONE; -PROPOFOL IV EMULSION 10 MG/ML 20 ML VIAL ONE; -SENOKOT8.6 MG PO; -SEVOFLURANE INHAL SOLN 250 ML PEN BTL ONE; -ULTRAM 50MG50 MG PO
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
[2018-01-25] MEDS ORDERED: MORPHINE SULFATE 2 MG/ML SYR IV PRN (19:30)
[2018-01-25] MEDS ORDERED: ONDANSETRON HCL INJ 2 MG/ML VIAL IV PRN (19:30)
--- NOTE | 2018-01-25 20:40 | Diagnostic Imaging Report ---
EXAMINATION: RIBS BILAT W/CXR INDICATION: ^PAIN ^[id number] ^1952 COMPARISON: Chest x-ray dated 01/23/2018 FINDINGS: PA and lateral views TUBES and LINES: None. LUNGS: Lungs are well inflated. No definite focal consolidation. Central peribronchovascular thickening/cuffing. PLEURA: No pleural effusion or pneumothorax. HEART AND MEDIASTINUM: The cardiomediastinal silhouette is markedly enlarged. BONES AND SOFT TISSUES: Questionable mildly displaced fracture of the anterolateral left 10th rib. Soft tissues are unremarkable. UPPER ABDOMEN: No free air under the diaphragm. IMPRESSION: Markedly enlarged cardiomediastinal silhouette, increased from prior x-ray. Thoracic aortic aneurysm or dissection cannot be entirely excluded and patient may benefit from chest CT with contrast for further evaluation. Questionable mildly displaced fracture of the anterolateral left 10th rib, seen only on one view. Please correlate clinically for point tenderness. Central peribronchovascular thickening/cuffing. Signed by: Dr. Blake Holly MD on 01/25/2018 8:37 PM
[2018-01-25] MEDS: HYDRALAZINE HCL 20 MG/ML VIAL IV PRN (21:20)
[2018-01-25 22:00] VITALS: BP 146/68
[2018-01-26] VITALS (8 sets, daily range): BP systolic 129–173; BP diastolic 59–89
[2018-01-26] MEDS ORDERED: ALBUTEROL SULFATE HFA 8GM INHALATION AEROSOL INH PRN (07:45)
[2018-01-26] MEDS ORDERED: ACETAMINOPHEN/CODEINE 300MG - 30MG TAB PO PRN (07:45)
[2018-01-26 08:49] LABS: BASOPHILS % 0.4 % (0.0-1.0); EOSINOPHILS % 0.2 % (0.0-6.0); HEMATOCRIT 36.5 % (34.2-44.1); HEMOGLOBIN 11.7 g/dL (12.0-16.0); LYMPHOCYTES # (AUTO) 1.4 (1.0-3.2); LYMPHOCYTES % 13.4 % (18.0-39.1); MEAN CORPUSCULAR HEMOGLOBIN 28.1 pg (28-32); MEAN CORPUSCULAR HGB CONC 32.1 g/dL (31-35); MEAN CORPUSCULAR VOLUME 87.5 fL (81-99); MONOCYTES # (AUTO) 0.6 (0.2-0.8); MONOCYTES % 5.5 % (4.4-11.3); NEUTROPHILS # (AUTO) 8.6 (2.1-6.9); PLATELET COUNT 347 x10e3/uL (140-360); RED BLOOD COUNT 4.17 x10e6/uL (3.6-5.1); RED CELL DISTRIBUTION WIDTH 14.9 % (11.7-14.4)
[2018-01-26] MEDS ORDERED: FAMOTIDINE 20 MG TAB PO SCH (09:00)
[2018-01-26] MEDS ORDERED: GABAPENTIN 100 MG CAP PO SCH (09:00)
[2018-01-26] MEDS ORDERED: NON-FORMULARY MEDICATION ([Calcium Carbonate] 500 MG) PO SCH (09:00)
[2018-01-26] MEDS ORDERED: LOSARTAN POTASSIUM 25 MG TAB PO SCH (09:00)
[2018-01-26] MEDS ORDERED: LABETALOL HCL 200 MG TAB PO SCH (09:00)
[2018-01-26] MEDS ORDERED: LORATADINE 10 MG TAB PO SCH ×2 (09:00)
[2018-01-26 09:16] LABS: ANION GAP 9.8 mmol/L (8-16); BLOOD UREA NITROGEN 18 mg/dL (7-26); BUN/CREATININE RATIO 22 (6-25); CALCIUM 9.4 mg/dL (8.4-10.2); CARBON DIOXIDE 29 mmol/L (22-29); CHLORIDE 104 mmol/L (98-107); CREATININE, SERUM 0.83 mg/dL (0.57-1.11); EST GLOMERULAR FILTRATION RATE > 60 ML/MIN (60-); GLUCOSE 122 mg/dL (74-118); MAGNESIUM 2.1 MG/DL (1.3-2.1); POTASSIUM 3.8 mmol/L (3.5-5.1); SODIUM 139 mmol/L (136-145)
[2018-01-26] MEDS: AMLODIPINE BESYLATE 10 MG TAB PO SCH (09:20)
[2018-01-26] MEDS: HYDRALAZINE HCL 25 MG TAB PO SCH ×4 (09:20→20:54)
[2018-01-26] MEDS: AMIODARONE HCL 200 MG TAB PO SCH (09:20)
[2018-01-26] MEDS: DOCUSATE SODIUM 100 MG CAP PO SCH ×2 (09:20→17:45)
[2018-01-26] MEDS: LOSARTAN POTASSIUM 100 MG TAB PO SCH (09:20)
[2018-01-26] MEDS: ASPIRIN 81 MG CHEW TAB PO SCH (09:20)
[2018-01-26] MEDS: LORATADINE/PSEUDOEPHEDRINE 24 HR SR TAB PO SCH (09:20)
[2018-01-26] MEDS: TOLTERODINE TARTRATE 4 MG CAPCR PO SCH (09:20)
[2018-01-26] MEDS: PANTOPRAZOLE SOD 40 MG TABEC PO SCH (09:21)
[2018-01-26] MEDS: SENNOSIDES 8.6 MG TAB PO SCH ×2 (09:21→17:45)
[2018-01-26] MEDS: RIVAROXABAN 20 MG TABLET PO SCH (09:21)
[2018-01-26] MEDS: LABETALOL HCL 200 MG TAB PO SCH ×2 (09:21→17:00)
[2018-01-26] MEDS: CALCIUM CARBONATE 500 MG CHEWABLE TABS PO SCH ×3 (09:21→20:54)
[2018-01-26] MEDS: FAMOTIDINE 20 MG TAB PO SCH ×2 (09:21→17:45)
[2018-01-26] MEDS: HYDROCODONE/APAP 5MG-325MG TAB PO PRN ×2 (11:20→17:20)
[2018-01-26] MEDS ORDERED: AMIODARONE HCL 200 MG TAB PO SCH (14:00)
[2018-01-26] MEDS: TRAMADOL HCL 50 MG TAB PO SCH ×2 (14:15→21:57)
[2018-01-26] MEDS: GABAPENTIN 100 MG CAP PO SCH ×2 (14:15→21:56)
[2018-01-26] MEDS: PRAVASTATIN 20 MG TAB PO SCH (20:54)
[2018-01-26] MEDS ORDERED: PRAVASTATIN 20 MG TAB PO SCH (21:00)
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
[2018-01-26] MEDS: MORPHINE SULFATE INJ 4 MG/ML INJ IV PRN (22:40)
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
[2018-01-27] VITALS (8 sets, daily range): BP systolic 113–182; BP diastolic 56–91
[2018-01-27] MEDS: HYDRALAZINE HCL 20 MG/ML VIAL IV PRN (00:55)
[2018-01-27] MEDS: GABAPENTIN 100 MG CAP PO SCH ×3 (06:00→21:41)
[2018-01-27] MEDS: TRAMADOL HCL 50 MG TAB PO SCH ×4 (06:00→23:01)
[2018-01-27] MEDS ORDERED: NON-FORMULARY MEDICATION (Pantoprazole Sod (Protonix) 40 MG) PO SCH (07:30)
[2018-01-27] MEDS: AMIODARONE HCL 200 MG TAB PO SCH (08:23)
[2018-01-27] MEDS: FAMOTIDINE 20 MG TAB PO SCH ×2 (08:24→17:46)
[2018-01-27] MEDS: PANTOPRAZOLE SOD 40 MG TABEC PO SCH (08:24)
[2018-01-27] MEDS: LABETALOL HCL 200 MG TAB PO SCH ×2 (08:24→17:46)
[2018-01-27] MEDS: AMLODIPINE BESYLATE 10 MG TAB PO SCH (08:24)
[2018-01-27] MEDS: HYDRALAZINE HCL 25 MG TAB PO SCH ×4 (08:24→21:41)
[2018-01-27] MEDS: LORATADINE/PSEUDOEPHEDRINE 24 HR SR TAB PO SCH (08:24)
[2018-01-27] MEDS: ASPIRIN 81 MG CHEW TAB PO SCH (08:24)
[2018-01-27] MEDS: SENNOSIDES 8.6 MG TAB PO SCH ×2 (08:25→17:46)
[2018-01-27] MEDS: LOSARTAN POTASSIUM 100 MG TAB PO SCH (08:25)
[2018-01-27] MEDS: TOLTERODINE TARTRATE 4 MG CAPCR PO SCH (08:25)
[2018-01-27] MEDS: DOCUSATE SODIUM 100 MG CAP PO SCH ×2 (08:25→17:46)
[2018-01-27] MEDS: CALCIUM CARBONATE 500 MG CHEWABLE TABS PO SCH ×3 (08:25→21:41)
[2018-01-27] MEDS: RIVAROXABAN 20 MG TABLET PO SCH (08:25)
[2018-01-27] MEDS: MORPHINE SULFATE INJ 4 MG/ML INJ IV PRN ×2 (09:15→17:25)
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
[2018-01-27 17:24] LABS: CLARITY,URINE TURBID (CLEAR); COLOR,URINE YELLOW (YELLOW); LEUKOCYTE ESTERASE ,URINE 2+ (NEGATIVE); NITRITE,URINE NEGATIVE (NEGATIVE)
[2018-01-27 17:25] LABS: BILIRUBIN,URINE NEGATIVE (NEGATIVE); KETONES,URINE NEGATIVE (NEGATIVE); PROTEIN,URINE DIPSTICK 2+ (NEGATIVE); URINE UROBILINOGEN 0.2 mg/dL (0.2 - 1)
[2018-01-27 17:27] LABS: BACTERIA,URINE MODERATE /HPF; WBC,URINE (MAN) >50 /HPF (0-5)
[2018-01-27 17:28] LABS: EPITHELIAL CELLS,URINE RARE /LPF
[2018-01-27] MEDS: PRAVASTATIN 20 MG TAB PO SCH (21:41)
[2018-01-27] MEDS: CEFEPIME HCL 1 GM VIAL IV SCH (23:01)
[2018-01-28] VITALS (7 sets, daily range): BP systolic 131–162; BP diastolic 67–102
[2018-01-28] MEDS: GABAPENTIN 100 MG CAP PO SCH ×3 (05:46→20:55)
[2018-01-28] MEDS: TRAMADOL HCL 50 MG TAB PO SCH ×3 (05:46→20:55)
[2018-01-28] MEDS: PANTOPRAZOLE SOD 40 MG TABEC PO SCH (07:46)
[2018-01-28] MEDS: FAMOTIDINE 20 MG TAB PO SCH ×2 (07:46→16:30)
[2018-01-28] MEDS: AMIODARONE HCL 200 MG TAB PO SCH (09:42)
[2018-01-28] MEDS: HYDRALAZINE HCL 25 MG TAB PO SCH ×4 (09:42→20:54)
[2018-01-28] MEDS: LORATADINE/PSEUDOEPHEDRINE 24 HR SR TAB PO SCH (09:42)
[2018-01-28] MEDS: LOSARTAN POTASSIUM 100 MG TAB PO SCH (09:42)
[2018-01-28] MEDS: DOCUSATE SODIUM 100 MG CAP PO SCH ×2 (09:42→17:41)
[2018-01-28] MEDS: ASPIRIN 81 MG CHEW TAB PO SCH (09:42)
[2018-01-28] MEDS: SENNOSIDES 8.6 MG TAB PO SCH ×2 (09:43→17:41)
[2018-01-28] MEDS: TOLTERODINE TARTRATE 4 MG CAPCR PO SCH (09:43)
[2018-01-28] MEDS: CALCIUM CARBONATE 500 MG CHEWABLE TABS PO SCH ×3 (09:43→20:54)
[2018-01-28] MEDS: LABETALOL HCL 200 MG TAB PO SCH ×2 (09:43→17:42)
[2018-01-28] MEDS: AMLODIPINE BESYLATE 10 MG TAB PO SCH (09:43)
[2018-01-28] MEDS: RIVAROXABAN 20 MG TABLET PO SCH (09:43)
[2018-01-28] MEDS: MORPHINE SULFATE INJ 4 MG/ML INJ IV PRN (13:10)
[2018-01-28] MEDS: CEFEPIME HCL 1 GM VIAL IV SCH (20:54)
[2018-01-28] MEDS: PRAVASTATIN 20 MG TAB PO SCH (20:54)
[2018-01-29] VITALS (8 sets, daily range): BP systolic 145–189; BP diastolic 68–97
[2018-01-29 05:27] LABS: BASOPHILS % 0.4 % (0.0-1.0); EOSINOPHILS # (AUTO) 0.1 (0.0-0.4); EOSINOPHILS % 1.3 % (0.0-6.0); HEMATOCRIT 31.7 % (34.2-44.1); HEMOGLOBIN 10.1 g/dL (12.0-16.0); LYMPHOCYTES # (AUTO) 1.9 (1.0-3.2); LYMPHOCYTES % 24.7 % (18.0-39.1); MEAN CORPUSCULAR HEMOGLOBIN 27.7 pg (28-32); MEAN CORPUSCULAR HGB CONC 31.9 g/dL (31-35); MEAN CORPUSCULAR VOLUME 87.1 fL (81-99); MONOCYTES # (AUTO) 0.7 (0.2-0.8); MONOCYTES % 8.9 % (4.4-11.3); NEUTROPHILS % 64.2 % (38.7-80.0); PLATELET COUNT 334 x10e3/uL (140-360); RED BLOOD COUNT 3.64 x10e6/uL (3.6-5.1); RED CELL DISTRIBUTION WIDTH 14.5 % (11.7-14.4)
[2018-01-29 05:44] LABS: ANION GAP 11.1 mmol/L (8-16); CALCIUM 9.5 mg/dL (8.4-10.2); CREATININE, SERUM 0.95 mg/dL (0.57-1.11); POTASSIUM 4.1 mmol/L (3.5-5.1)
[2018-01-29] MEDS: TRAMADOL HCL 50 MG TAB PO SCH ×3 (06:25→22:30)
[2018-01-29] MEDS: GABAPENTIN 100 MG CAP PO SCH ×3 (06:25→22:30)
[2018-01-29] MEDS: CALCIUM CARBONATE 500 MG CHEWABLE TABS PO SCH ×3 (09:34→22:30)
[2018-01-29] MEDS: LORATADINE/PSEUDOEPHEDRINE 24 HR SR TAB PO SCH (09:34)
[2018-01-29] MEDS: AMIODARONE HCL 200 MG TAB PO SCH (09:34)
[2018-01-29] MEDS: LABETALOL HCL 200 MG TAB PO SCH ×2 (09:34→17:33)
[2018-01-29] MEDS: LOSARTAN POTASSIUM 100 MG TAB PO SCH (09:34)
[2018-01-29] MEDS: HYDRALAZINE HCL 25 MG TAB PO SCH ×4 (09:34→22:30)
[2018-01-29] MEDS: PANTOPRAZOLE SOD 40 MG TABEC PO SCH (09:34)
[2018-01-29] MEDS: ASPIRIN 81 MG CHEW TAB PO SCH (09:34)
[2018-01-29] MEDS: FAMOTIDINE 20 MG TAB PO SCH ×2 (09:34→17:33)
[2018-01-29] MEDS: TOLTERODINE TARTRATE 4 MG CAPCR PO SCH (09:34)
[2018-01-29] MEDS: AMLODIPINE BESYLATE 10 MG TAB PO SCH (09:34)
[2018-01-29] MEDS: SENNOSIDES 8.6 MG TAB PO SCH ×2 (09:34→17:33)
[2018-01-29] MEDS: DOCUSATE SODIUM 100 MG CAP PO SCH ×2 (09:34→17:33)
[2018-01-29] MEDS: RIVAROXABAN 20 MG TABLET PO SCH (09:34)
[2018-01-29] MEDS: MEROPENEM 500 MG VIAL IV SCH ×2 (12:28→22:30)
[2018-01-29] MEDS ORDERED: MEROPENEM 500MG 500 MG in SODIUM CHLORIDE 0.9% 50ML 50 ML IV SCH (14:00)
[2018-01-29 20:46] LABS: INR 1.98
[2018-01-29] MEDS: SIMVASTATIN 20 MG TAB PO SCH (22:30)
[2018-01-30] VITALS (9 sets, daily range): BP systolic 125–197; BP diastolic 66–99
[2018-01-30] MEDS: MEROPENEM 500 MG VIAL IV SCH ×3 (04:10→21:14)
[2018-01-30 05:36] LABS: BASOPHILS % 0.4 % (0.0-1.0); EOSINOPHILS # (AUTO) 0.1 (0.0-0.4); HEMOGLOBIN 10.6 g/dL (12.0-16.0); LYMPHOCYTES # (AUTO) 1.5 (1.0-3.2); LYMPHOCYTES % 19.9 % (18.0-39.1); MEAN CORPUSCULAR HEMOGLOBIN 27.5 pg (28-32); MEAN CORPUSCULAR HGB CONC 32.1 g/dL (31-35); MEAN CORPUSCULAR VOLUME 85.5 fL (81-99); MONOCYTES # (AUTO) 0.7 (0.2-0.8); MONOCYTES % 8.6 % (4.4-11.3); NEUTROPHILS # (AUTO) 5.4 (2.1-6.9); NEUTROPHILS % 69.7 % (38.7-80.0); PLATELET COUNT 358 x10e3/uL (140-360); RED BLOOD COUNT 3.86 x10e6/uL (3.6-5.1); RED CELL DISTRIBUTION WIDTH 14.2 % (11.7-14.4)
[2018-01-30] MEDS: GABAPENTIN 100 MG CAP PO SCH ×3 (05:53→21:15)
[2018-01-30] MEDS: TRAMADOL HCL 50 MG TAB PO SCH ×3 (05:53→21:15)
[2018-01-30 06:07] LABS: ANION GAP 11.7 mmol/L (8-16); BLOOD UREA NITROGEN 15 mg/dL (7-26); BUN/CREATININE RATIO 19 (6-25); CALCIUM 9.9 mg/dL (8.4-10.2); CARBON DIOXIDE 29 mmol/L (22-29); CHLORIDE 100 mmol/L (98-107); CREATININE, SERUM 0.81 mg/dL (0.57-1.11); EST GLOMERULAR FILTRATION RATE > 60 ML/MIN (60-); GLUCOSE 100 mg/dL (74-118); POTASSIUM 3.7 mmol/L (3.5-5.1); SODIUM 137 mmol/L (136-145)
[2018-01-30] MEDS: HYDRALAZINE HCL 25 MG TAB PO SCH ×4 (08:20→21:14)
[2018-01-30] MEDS: ASPIRIN 81 MG CHEW TAB PO SCH (08:20)
[2018-01-30] MEDS: PANTOPRAZOLE SOD 40 MG TABEC PO SCH (08:20)
[2018-01-30] MEDS: FAMOTIDINE 20 MG TAB PO SCH ×2 (08:20→17:33)
[2018-01-30] MEDS: TOLTERODINE TARTRATE 4 MG CAPCR PO SCH (08:21)
[2018-01-30] MEDS: AMLODIPINE BESYLATE 10 MG TAB PO SCH (08:21)
[2018-01-30] MEDS: SENNOSIDES 8.6 MG TAB PO SCH ×2 (08:21→17:33)
[2018-01-30] MEDS: LORATADINE/PSEUDOEPHEDRINE 24 HR SR TAB PO SCH (08:21)
[2018-01-30] MEDS: LOSARTAN POTASSIUM 100 MG TAB PO SCH (08:21)
[2018-01-30] MEDS: AMIODARONE HCL 200 MG TAB PO SCH (08:21)
[2018-01-30] MEDS: DOCUSATE SODIUM 100 MG CAP PO SCH ×2 (08:21→17:33)
[2018-01-30] MEDS: RIVAROXABAN 20 MG TABLET PO SCH (08:22)
[2018-01-30] MEDS: LABETALOL HCL 200 MG TAB PO SCH ×2 (08:22→17:33)
[2018-01-30] MEDS: CALCIUM CARBONATE 500 MG CHEWABLE TABS PO SCH ×3 (08:22→21:15)
[2018-01-30] MEDS: SIMVASTATIN 20 MG TAB PO SCH (21:15)
[2018-01-31] VITALS (7 sets, daily range): BP systolic 120–181; BP diastolic 56–85
[2018-01-31] MEDS: MEROPENEM 500 MG VIAL IV SCH ×3 (03:36→20:00)
[2018-01-31] MEDS: GABAPENTIN 100 MG CAP PO SCH ×3 (05:29→21:25)
[2018-01-31] MEDS: TRAMADOL HCL 50 MG TAB PO SCH ×3 (05:29→23:26)
[2018-01-31] MEDS: FAMOTIDINE 20 MG TAB PO SCH ×2 (07:30→16:59)
[2018-01-31] MEDS: PANTOPRAZOLE SOD 40 MG TABEC PO SCH (07:30)
[2018-01-31] MEDS: CALCIUM CARBONATE 500 MG CHEWABLE TABS PO SCH ×3 (09:00→21:19)
[2018-01-31] MEDS: TOLTERODINE TARTRATE 4 MG CAPCR PO SCH (09:00)
[2018-01-31] MEDS: LABETALOL HCL 200 MG TAB PO SCH ×2 (09:00→17:37)
[2018-01-31] MEDS: SENNOSIDES 8.6 MG TAB PO SCH ×2 (09:00→17:36)
[2018-01-31] MEDS: AMLODIPINE BESYLATE 10 MG TAB PO SCH (09:00)
[2018-01-31] MEDS: ASPIRIN 81 MG CHEW TAB PO SCH (09:00)
[2018-01-31] MEDS: DOCUSATE SODIUM 100 MG CAP PO SCH ×2 (09:00→17:36)
[2018-01-31] MEDS: RIVAROXABAN 20 MG TABLET PO SCH (09:00)
[2018-01-31] MEDS: HYDRALAZINE HCL 25 MG TAB PO SCH ×4 (09:00→21:20)
[2018-01-31] MEDS: AMIODARONE HCL 200 MG TAB PO SCH (09:00)
[2018-01-31] MEDS: LORATADINE/PSEUDOEPHEDRINE 24 HR SR TAB PO SCH (09:00)
[2018-01-31] MEDS: LOSARTAN POTASSIUM 100 MG TAB PO SCH (09:00)
[2018-01-31] MEDS: MORPHINE SULFATE INJ 4 MG/ML INJ IV PRN ×2 (09:50→16:10)
[2018-01-31] MEDS: HYDRALAZINE HCL 20 MG/ML VIAL IV PRN (10:00)
[2018-01-31] MEDS ORDERED: BUPIVACAINE 0.25% 30ML SDV INJ ONE (12:09)
[2018-01-31] MEDS ORDERED: MIDAZOLAM HCL 2 MG/2 ML VIAL ONE (12:13)
[2018-01-31] MEDS ORDERED: SODIUM CHLORIDE 0.9% 50ML 50 ML ONE (12:13)
[2018-01-31] MEDS ORDERED: FENTANYL CITRATE/PF 100MCG/2 ML INJ ONE (12:13)
[2018-01-31] MEDS ORDERED: LIDOCAINE HCL 2% LOCAL 20 ML VIAL ONE (12:14)
[2018-01-31] MEDS ORDERED: IOPAMIDOL 300MG/ML 50ML INFUS..BTL IV ONE (12:14)
[2018-01-31] MEDS ORDERED: CEFAZOLIN SOD 1 GM VIAL ONE (12:14)
[2018-01-31] MEDS ORDERED: SODIUM CHLORIDE 0.9% 1000ML 1,000 ML ONE (12:17)
[2018-01-31] MEDS ORDERED: VANCOMYCIN 1GM/NS 250 ML 250 ML ONE (12:31)
[2018-01-31] MEDS: BISACODYL 5 MG TAB EC PO PRN (18:00)
[2018-01-31] MEDS: MAGNESIUM HYDROXIDE 30 ML UDC PO PRN (18:00)
[2018-01-31] MEDS: SIMVASTATIN 20 MG TAB PO SCH (21:19)
[2018-02-01] VITALS (9 sets, daily range): BP systolic 123–182; BP diastolic 55–88
[2018-02-01] MEDS: MEROPENEM 500 MG VIAL IV SCH ×3 (04:00→20:48)
[2018-02-01] MEDS: GABAPENTIN 100 MG CAP PO SCH ×3 (06:02→20:46)
[2018-02-01] MEDS: TRAMADOL HCL 50 MG TAB PO SCH ×3 (06:03→22:15)
[2018-02-01] MEDS ORDERED: MILK OF MA400 MG/5 M PO (07:25)
[2018-02-01] MEDS ORDERED: COLACE100 M1 PO (07:25)
[2018-02-01] MEDS ORDERED: SENOKOT8.6 MG PO (07:25)
[2018-02-01] MEDS ORDERED: ULTRAM 50MG50 MG PO (07:25)
[2018-02-01] MEDS ORDERED: Calcium Carbonate 500MG Chew PO (07:25)
[2018-02-01] MEDS ORDERED: DULCOLAX5 MG PO (07:25)
[2018-02-01] MEDS ORDERED: GABAPENTIN100 MG PO (07:25)
[2018-02-01] MEDS ORDERED: MERREM500 MG IV (07:25)
[2018-02-01] MEDS: FAMOTIDINE 20 MG TAB PO SCH ×2 (07:50→16:30)
[2018-02-01] MEDS: PANTOPRAZOLE SOD 40 MG TABEC PO SCH (07:50)
[2018-02-01] MEDS: TOLTERODINE TARTRATE 4 MG CAPCR PO SCH (09:42)
[2018-02-01] MEDS: AMLODIPINE BESYLATE 10 MG TAB PO SCH (09:42)
[2018-02-01] MEDS: AMIODARONE HCL 200 MG TAB PO SCH (09:42)
[2018-02-01] MEDS: ASPIRIN 81 MG CHEW TAB PO SCH (09:42)
[2018-02-01] MEDS: HYDRALAZINE HCL 25 MG TAB PO SCH ×4 (09:42→20:57)
[2018-02-01] MEDS: LORATADINE/PSEUDOEPHEDRINE 24 HR SR TAB PO SCH (09:42)
[2018-02-01] MEDS: DOCUSATE SODIUM 100 MG CAP PO SCH ×2 (09:42→17:34)
[2018-02-01] MEDS: LOSARTAN POTASSIUM 100 MG TAB PO SCH (09:42)
[2018-02-01] MEDS: SENNOSIDES 8.6 MG TAB PO SCH ×2 (09:42→17:34)
[2018-02-01] MEDS: RIVAROXABAN 20 MG TABLET PO SCH (09:43)
[2018-02-01] MEDS: LABETALOL HCL 200 MG TAB PO SCH ×2 (09:43→17:35)
[2018-02-01] MEDS: CALCIUM CARBONATE 500 MG CHEWABLE TABS PO SCH ×3 (09:43→20:45)
[2018-02-01] MEDS: MORPHINE SULFATE INJ 4 MG/ML INJ IV PRN (12:35)
[2018-02-01] MEDS: MAGNESIUM HYDROXIDE 30 ML UDC PO PRN (17:34)
[2018-02-01] MEDS: BISACODYL 5 MG TAB EC PO PRN (17:34)
[2018-02-01] MEDS: SIMVASTATIN 20 MG TAB PO SCH (20:45)
[2018-02-01] MEDS: HYDRALAZINE HCL 20 MG/ML VIAL IV PRN (23:59)
[2018-02-02] VITALS (7 sets, daily range): BP systolic 125–182; BP diastolic 61–86
[2018-02-02] MEDS ORDERED: SODIUM CHLORIDE 0.9% 50ML 50 ML ONE ×2 (02:51→21:03)
[2018-02-02] MEDS: MEROPENEM 500 MG VIAL IV SCH ×3 (04:22→21:05)
[2018-02-02] MEDS: GABAPENTIN 100 MG CAP PO SCH ×3 (05:16→21:05)
[2018-02-02] MEDS: TRAMADOL HCL 50 MG TAB PO SCH ×3 (05:17→21:06)
[2018-02-02] MEDS: PANTOPRAZOLE SOD 40 MG TABEC PO SCH (07:46)
[2018-02-02] MEDS: FAMOTIDINE 20 MG TAB PO SCH ×2 (07:46→16:44)
[2018-02-02] MEDS: HYDRALAZINE HCL 25 MG TAB PO SCH ×4 (09:14→21:05)
[2018-02-02] MEDS: DOCUSATE SODIUM 100 MG CAP PO SCH ×2 (09:15→17:17)
[2018-02-02] MEDS: ASPIRIN 81 MG CHEW TAB PO SCH (09:15)
[2018-02-02] MEDS: AMLODIPINE BESYLATE 10 MG TAB PO SCH (09:15)
[2018-02-02] MEDS: SENNOSIDES 8.6 MG TAB PO SCH ×2 (09:15→17:17)
[2018-02-02] MEDS: AMIODARONE HCL 200 MG TAB PO SCH (09:15)
[2018-02-02] MEDS: LORATADINE/PSEUDOEPHEDRINE 24 HR SR TAB PO SCH (09:15)
[2018-02-02] MEDS: TOLTERODINE TARTRATE 4 MG CAPCR PO SCH (09:15)
[2018-02-02] MEDS: CALCIUM CARBONATE 500 MG CHEWABLE TABS PO SCH ×3 (09:15→21:05)
[2018-02-02] MEDS: LABETALOL HCL 200 MG TAB PO SCH ×2 (09:15→17:18)
[2018-02-02] MEDS: LOSARTAN POTASSIUM 100 MG TAB PO SCH (09:15)
[2018-02-02] MEDS: MORPHINE SULFATE INJ 4 MG/ML INJ IV PRN ×2 (11:35→22:18)
[2018-02-02] MEDS: SIMVASTATIN 20 MG TAB PO SCH (21:05)
[2018-02-03] VITALS (8 sets, daily range): BP systolic 124–183; BP diastolic 66–85
[2018-02-03] MEDS: MEROPENEM 500 MG VIAL IV SCH ×3 (04:20→20:04)
[2018-02-03] MEDS: GABAPENTIN 100 MG CAP PO SCH ×3 (05:48→22:11)
[2018-02-03] MEDS: HYDRALAZINE HCL 20 MG/ML VIAL IV PRN (05:48)
[2018-02-03] MEDS: TRAMADOL HCL 50 MG TAB PO SCH ×3 (05:49→22:11)
[2018-02-03] MEDS: PANTOPRAZOLE SOD 40 MG TABEC PO SCH (08:55)
[2018-02-03] MEDS: LORATADINE/PSEUDOEPHEDRINE 24 HR SR TAB PO SCH (08:56)
[2018-02-03] MEDS: ASPIRIN 81 MG CHEW TAB PO SCH (08:56)
[2018-02-03] MEDS: HYDRALAZINE HCL 25 MG TAB PO SCH ×5 (08:56→20:56)
[2018-02-03] MEDS: AMIODARONE HCL 200 MG TAB PO SCH (08:56)
[2018-02-03] MEDS: DOCUSATE SODIUM 100 MG CAP PO SCH ×2 (08:56→16:37)
[2018-02-03] MEDS: LOSARTAN POTASSIUM 100 MG TAB PO SCH (08:57)
[2018-02-03] MEDS: TOLTERODINE TARTRATE 4 MG CAPCR PO SCH (08:57)
[2018-02-03] MEDS: AMLODIPINE BESYLATE 10 MG TAB PO SCH (08:57)
[2018-02-03] MEDS: SENNOSIDES 8.6 MG TAB PO SCH ×2 (08:57→16:38)
[2018-02-03] MEDS: FAMOTIDINE 20 MG TAB PO SCH ×2 (08:58→16:37)
[2018-02-03] MEDS: LABETALOL HCL 200 MG TAB PO SCH ×3 (08:58→16:48)
[2018-02-03] MEDS: CALCIUM CARBONATE 500 MG CHEWABLE TABS PO SCH ×3 (08:58→20:56)
[2018-02-03] MEDS ORDERED: SODIUM CHLORIDE 0.9% 50ML 50 ML ONE (12:07)
[2018-02-03] MEDS: MORPHINE SULFATE INJ 4 MG/ML INJ IV PRN (20:26)
[2018-02-03] MEDS: SIMVASTATIN 20 MG TAB PO SCH (20:56)
[2018-02-04] VITALS (8 sets, daily range): BP systolic 155–206; BP diastolic 74–87
[2018-02-04] MEDS: MEROPENEM 500 MG VIAL IV SCH ×3 (04:00→20:35)
[2018-02-04] MEDS: MORPHINE SULFATE INJ 4 MG/ML INJ IV PRN (04:19)
[2018-02-04] MEDS: GABAPENTIN 100 MG CAP PO SCH ×3 (05:11→21:30)
[2018-02-04] MEDS: TRAMADOL HCL 50 MG TAB PO SCH ×3 (05:12→21:30)
[2018-02-04] MEDS: HYDRALAZINE HCL 20 MG/ML VIAL IV PRN (05:14)
[2018-02-04] MEDS ORDERED: HYDROCODONE/APAP 5MG-325MG TAB PO PRN (06:15)
[2018-02-04] MEDS ORDERED: LABETALOL HCL 20 MG/4 ML SYRINGE IV STA (06:15)
[2018-02-04] MEDS: HYDRALAZINE HCL 25 MG TAB PO SCH ×4 (07:58→20:35)
[2018-02-04] MEDS: FAMOTIDINE 20 MG TAB PO SCH ×2 (07:58→16:10)
[2018-02-04] MEDS: PANTOPRAZOLE SOD 40 MG TABEC PO SCH (07:58)
[2018-02-04] MEDS: AMIODARONE HCL 200 MG TAB PO SCH (07:59)
[2018-02-04] MEDS: DOCUSATE SODIUM 100 MG CAP PO SCH ×2 (07:59→16:10)
[2018-02-04] MEDS: LOSARTAN POTASSIUM 100 MG TAB PO SCH (07:59)
[2018-02-04] MEDS: TOLTERODINE TARTRATE 4 MG CAPCR PO SCH (07:59)
[2018-02-04] MEDS: LORATADINE/PSEUDOEPHEDRINE 24 HR SR TAB PO SCH (07:59)
[2018-02-04] MEDS: ASPIRIN 81 MG CHEW TAB PO SCH (07:59)
[2018-02-04] MEDS: CALCIUM CARBONATE 500 MG CHEWABLE TABS PO SCH ×3 (08:00→20:35)
[2018-02-04] MEDS: AMLODIPINE BESYLATE 10 MG TAB PO SCH (08:00)
[2018-02-04] MEDS: LABETALOL HCL 200 MG TAB PO SCH ×2 (08:00→16:10)
[2018-02-04] MEDS: SENNOSIDES 8.6 MG TAB PO SCH ×2 (08:00→16:10)
[2018-02-04] MEDS ORDERED: SODIUM CHLORIDE 0.9% 50ML 50 ML ONE (12:59)
[2018-02-04] MEDS: SIMVASTATIN 20 MG TAB PO SCH (20:35)
[2018-02-05] VITALS (7 sets, daily range): BP systolic 163–209; BP diastolic 72–95
[2018-02-05] MEDS: HYDRALAZINE HCL 20 MG/ML VIAL IV PRN ×2 (01:05→05:05)
[2018-02-05] MEDS: MEROPENEM 500 MG VIAL IV SCH (04:51)
[2018-02-05] MEDS: TRAMADOL HCL 50 MG TAB PO SCH ×2 (05:35→15:00)
[2018-02-05] MEDS: GABAPENTIN 100 MG CAP PO SCH ×2 (05:35→15:00)
[2018-02-05] MEDS: PANTOPRAZOLE SOD 40 MG TABEC PO SCH (08:41)
[2018-02-05] MEDS: FAMOTIDINE 20 MG TAB PO SCH ×2 (08:41→16:30)
[2018-02-05] MEDS: LORATADINE/PSEUDOEPHEDRINE 24 HR SR TAB PO SCH (09:20)
[2018-02-05] MEDS: HYDRALAZINE HCL 25 MG TAB PO SCH ×3 (09:20→18:29)
[2018-02-05] MEDS: ALPRAZOLAM 0.25 MG TAB PO SCH ×2 (09:20→15:00)
[2018-02-05] MEDS: ASPIRIN 81 MG CHEW TAB PO SCH (09:20)
[2018-02-05] MEDS: AMIODARONE HCL 200 MG TAB PO SCH (09:20)
[2018-02-05] MEDS: DOCUSATE SODIUM 100 MG CAP PO SCH ×2 (09:20→17:58)
[2018-02-05] MEDS: AMLODIPINE BESYLATE 10 MG TAB PO SCH (09:21)
[2018-02-05] MEDS: LABETALOL HCL 200 MG TAB PO SCH ×2 (09:21→17:58)
[2018-02-05] MEDS: TOLTERODINE TARTRATE 4 MG CAPCR PO SCH (09:21)
[2018-02-05] MEDS: LOSARTAN POTASSIUM 100 MG TAB PO SCH (09:21)
[2018-02-05] MEDS: CALCIUM CARBONATE 500 MG CHEWABLE TABS PO SCH ×2 (09:21→15:00)
[2018-02-05] MEDS: SENNOSIDES 8.6 MG TAB PO SCH ×2 (09:21→17:58)
[2018-02-05] MEDS: MINOXIDIL 2.5 MG TAB PO SCH ×3 (09:30→17:58)
[2018-02-05] MEDS ORDERED: LEVAQUIN500 MG PO (14:18)
--- NOTE | 2018-02-13 13:43 | Diagnostic Imaging Report ---
History:72 year old female with intractable low back pain , symptomatic L1 compression fracture failing conservative management Comparison studies:CT 12/26/2017 , MRI attempted but limited by upper extremity external fixator. Procedure L1 Vertebral Augmentation Codes:,20687 Percutaneous vertebral augmentation, 1 vertebral body, unilateral or bilateral cannulation, inclusive of all imaging guidance; lumbar ,,04873 Moderate Sedation provided by the same physician performing the diagnostic or therapeutic service that the sedation supports, for patients 5 years of age or older for the first 30 minutes,85959 each additional 15 minutes of intraservice time Sedation: Moderate sedation administered by interventional radiology nurse under supervision of the interventional radiologist with continuous hemodynamic monitoring for 45 minutes. Physician: Hernando Govea MD Medications: Fentanyl 50mcg IV, Versed 1mg IV Antibiotics: Vancomycin 1gm administered by slow infusion 15 prior to start of case. Fluoroscopy : 2.4 minutes Contrast: 0 ml Radiation exposure:487.4 cGycm2 Technique: Following informed written consent, patient was placed in a prone position on the angiography table. According to universal protocol, preprocedural time-out was performed with team members agreeing on patient identity, correct site and procedure to be done. The skin was clean, prepped and draped in the usual sterile fashion. Appeals Nurse images were obtained. Local and periosteal anesthesia was injected and conscious sedation was administered. Then the L1 vertebral body was accessed under fluoroscopic guidance using a unipedicular approach. Cavity creation was performed using an inflatable balloon tamp. Then under fluoroscopic guidance 4 cc's of Román HV PMMA was injected into the vertebral body. No cement extravasation was seen. Needle was then removed and hemostasis was acquired by manual compression. A sterile dressing was applied. Procedure was well tolerated and the patient remained neurologically intact and unchanged during and following the procedure. Findings: L1 compression fracture. Post procedure imaging demonstrates bilateral distribution of PMMA without cement extravasation. Impression: 1. L1 vertebral augmentation with inflatable balloon tamp, technically successful. 2. Per PQRS criteria, patient should be screened for osteoporosis. Signed by: Dr. Hernando Govea M.D. on 02/05/2018 1:25 PM
== END 2018-02-05 21:27 | disposition home or self-care (01) | DRG 516 ==
LOC: ER 15:23 → ERHOLD 19:16 → MERGE 19:16 → MED/SURG3 22:00 → OBSVTOIN 01-26 14:04
PROVIDERS: ADMIT Internal Medicine; ATTEND Internal Medicine
PROC: 0QS03ZZ Reposition Lumbar Vertebra, Percutaneous Approach (ICD-10-PCS; principal; 2018-01-31)
PROC: 0QU03JZ Supplement Lumbar Vertebra with Synthetic Substitute, Percutaneous Approach (ICD-10-PCS; 2018-01-31)
DX: M80.88XA Other osteoporosis with current pathological fracture, vertebra(e), initial encounter for fracture (principal); S22.32XA Fracture of one rib, left side, initial encounter for closed fracture; S22.31XA Fracture of one rib, right side, initial encounter for closed fracture; F03.91 Unspecified dementia, unspecified severity, with behavioral disturbance; F05 Delirium due to known physiological condition; S32.512A Fracture of superior rim of left pubis, initial encounter for closed fracture; S62.102A Fracture of unspecified carpal bone, left wrist, initial encounter for closed fracture; V43.62XA Car passenger injured in collision with other type car in traffic accident, initial encounter; Y92.410 Unspecified street and highway as the place of occurrence of the external cause; Z86.73 Personal history of transient ischemic attack (TIA), and cerebral infarction without residual deficits; G47.10 Hypersomnia, unspecified; I48.0 Paroxysmal atrial fibrillation; Z79.01 Long term (current) use of anticoagulants; F06.8 Other specified mental disorders due to known physiological condition; I10 Essential (primary) hypertension; E11.42 Type 2 diabetes mellitus with diabetic polyneuropathy; Z79.4 Long term (current) use of insulin; G47.33 Obstructive sleep apnea (adult) (pediatric)
CPT/HCPCS: 22511; 36415; 71111; 72128; 72131; 73522; 74470; 77002; 80048; 81001; 83735; 84443; 85025; 85610; 87086; 87186; 97139; 99284; C1727; G0378; J0360; J0690; J0692; J2001; J2185; J2250; J2270; J2405; J3370; J7030

== ENCOUNTER → 2018-01-25 | Day surgery (SDC) | payer MEDICARE ==
--- NOTE | 2018-01-23 16:53 | Diagnostic Imaging Report ---
EXAMINATION: PA and lateral views of the chest. COMPARISON: None CLINICAL HISTORY: Preoperative study for wrist surgery DISCUSSION: The patient is rotated to the left. The lungs are well-inflated and without focal airspace consolidation, pleural effusion, or pneumothorax. Heart size is at the upper limits of normal. Tortuous, probably ectatic thoracic aorta with atherosclerotic calcification. The shadow of the descending thoracic aorta measures approximately 4 cm transversely. Prominence of the right hilum is likely attributable to vascular structures and exacerbated by leftward patient rotation. No acute osseous abnormality. Incompletely healed fracture deformity of the surgical neck of the right humerus, partially visualized. IMPRESSION: No acute cardiopulmonary abnormality. Borderline cardiomegaly without vascular decompensation. 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 Nonemergent CT angiography of the chest is suggested for further evaluation as no prior imaging studies are available for comparison. Signed by: Dr. Ranjan Vieira M.D. on 01/23/2018 4:50 PM
[2018-01-23 17:11] LABS: BASOPHILS % 0.4 % (0.0-1.0); EOSINOPHILS % 0.3 % (0.0-6.0); HEMATOCRIT 35.8 % (34.2-44.1); HEMOGLOBIN 11.5 g/dL (12.0-16.0); LYMPHOCYTES # (AUTO) 1.8 (1.0-3.2); LYMPHOCYTES % 19.9 % (18.0-39.1); MEAN CORPUSCULAR HEMOGLOBIN 27.8 pg (28-32); MEAN CORPUSCULAR HGB CONC 32.1 g/dL (31-35); MEAN CORPUSCULAR VOLUME 86.7 fL (81-99); MONOCYTES # (AUTO) 0.6 (0.2-0.8); MONOCYTES % 6.2 % (4.4-11.3); NEUTROPHILS # (AUTO) 6.6 (2.1-6.9); NEUTROPHILS % 72.4 % (38.7-80.0); PLATELET COUNT 360 x10e3/uL (140-360); RED BLOOD COUNT 4.13 x10e6/uL (3.6-5.1); RED CELL DISTRIBUTION WIDTH 14.9 % (11.7-14.4)
[2018-01-23 17:25] LABS: ANION GAP 11.8 mmol/L (8-16); BLOOD UREA NITROGEN 24 mg/dL (7-26); BUN/CREATININE RATIO 28 (6-25); CALCIUM 9.5 mg/dL (8.4-10.2); CARBON DIOXIDE 25 mmol/L (22-29); CHLORIDE 102 mmol/L (98-107); CREATININE, SERUM 0.87 mg/dL (0.57-1.11); EST GLOMERULAR FILTRATION RATE > 60 ML/MIN (60-); GLUCOSE 110 mg/dL (74-118); POTASSIUM 3.8 mmol/L (3.5-5.1); SODIUM 135 mmol/L (136-145)
[~2018-01-25] MED LIST changes: +AMIODARONE HCL200 MG; +AMIODARONE HCL200 MG PO; +AMIODARONE50 MG/1 M1 IV; +ASPIRIN81 MG PO; +CATAPRES0.1 MG PO; +CLARITIN-D 241 EACH PO; +CLINDAMYCIN 600MG / 50ML 50 ML IV ONE; +COLACE100 M1 PO; +Calcium Carbonate 500MG Chew PO; +Calcium Carbonate PO; +DETROL LA4 MG PO; +DEXAMETHASONE SOD PHOS INJ 4 MG/ML VIAL ONE; +DULCOLAX5 MG PO; +FAMOTIDINE20 MG PO; +FENTANYL CITRATE/PF 100MCG/2 ML INJ ONE; +GABAPENTIN100 MG; +GABAPENTIN100 MG PO; +HYDROCODONE/APAP 7.5MG-325MG 1 EA TAB ONE; +HYDROMORPHONE 2MG/ML 2 MG/ML ML ONE; +Hydrocodone/Apap 5MG-325MG PO; +IBANDRONATE SO150 MG PO; +LABETALOL HCL200 MG PO; +LEVAQUIN500 MG PO; +LIDOCAINE HCL 2% LOCAL INJ 5 ML SDV VIAL INJ ONE; +LOSARTAN POTAS100 MG PO; +MERREM500 MG IV; +MIDAZOLAM HCL 2 MG/2 ML VIAL ONE; +MILK OF MA400 MG/5 M PO; +MORPHINE SULFATE 2 MG/ML SYR ONE; +MYRBETRIQ25 MG; +NORCO 5-325 TA1 EACH PO; +NORVASC10 MG PO; +ONDANSETRON HCL INJ 2 MG/ML VIAL ONE; +PRAVASTATIN SOD20 MG; +PRAVASTATIN SOD20 MG PO; +PROAIR HFA INH8.5 GM INH; +PROPOFOL IV EMULSION 10 MG/ML 20 ML VIAL ONE; +PROTONIX40 MG/ML PO; +SENOKOT8.6 MG PO; +SEVOFLURANE INHAL SOLN 250 ML PEN BTL ONE; +TYLENOL WITH C1 EACH PO; +ULTRAM 50MG50 MG PO; +XAREL PO; +XARELTO20 MG PO
--- OUTSIDE RECORDS SUMMARY | 2018-01-25 09:59 | XMS REPORT ---
Author Author [facility] Address Unknown Phone Unavailable Care Team Providers Care Financial Economist Name Role Phone KATHRYN VILLAR Unavailable Unavailable Payers Payer Name Policy Type Policy Number Effective Date Expiration Date Problems This patient has no known problems. Allergies, Adverse Reactions, Alerts Allergy Name Allergy Type Status Severity Reaction(s) Onset Date Inactive Date Treating Clinician Comments Penicillins DA Active 2015-02-26 00:00:00 enalapril DA Active SV 2015-02-26 00:00:00 Medications This patient has no known medications. Results Test Description Test Time Test Comments Text Results Atomic Results Result Comments CHEST 2 VIEWS 2018-01-23 16:45:00 [place] [id number] Patient Name: KARLY CHATTERJEE MR #: [id number] : 1945 Age/Sex: 72/F Req #: [id number] Adm Physician: Ordered by: KATHRYN VILLAR MD Report #: [id number] Location: OR Room/Bed: Procedure: [id number] DX/CHEST 2 VIEWS Exam Date: 01/23/18 Exam Time: 1635 REPORT STATUS: Signed EXAMINATION: PA and lateral views of the chest. ENMANUEL RISON: None CLINICAL HISTORY: Preoperative study for wrist surgery DISCUSSION: The patient is rotated to the left. The lungs are well- inflated and without focal airspace consolidation, pleural effusion, or pneumothorax. Heart size is at the upper limits of normal. Tortuous, probably ectatic thoracic aorta with atherosclerotic calcification. The shadow of the descending thoracic aorta measures approximately 4 cm transversely. Prominence of the right hilum is likely attributable to vascular structures and exacerbated by leftward patient rotation. No acute osseous abnormality. Incompletely healed fracture deformity of the surgical neck of the right humerus, partially visualized. IMPRESSION: No acute cardiopulmonary abnormality. Borderline cardiomegaly without vascular decompensation. 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 Nonemergent CT angiography of the chest is suggested for further evaluation as no prior imaging studies are available for comparison. Signed by: Dr. Kathryn Victoria M.D. on 01/23/2018 4:50 PM Dictated By: KATHRYN VICTORIA MD 49 Transcribed By: CLAUDIA on 01/23/181649 COPY TO: KATHRYN VILLAR MD
[2018-01-25 14:50] VITALS: BP 162/81
--- NOTE | 2018-01-25 16:35 | Operative Report ---
DATE OF PROCEDURE: January 25, 2018 SIEVE GRADER TENDER: Bud Melendez PA-C The patient was brought to the operating room for induction of anesthesia. Throughout this case, my PA's assistance was necessary for retraction of soft tissue and positioning of the extremity. This allows for efficient and technically successful execution of the operation and is considered medically necessary. PREOPERATIVE DIAGNOSIS: Comminuted intraarticular left distal radius fracture. POSTOPERATIVE DIAGNOSIS: Comminuted intraarticular left distal radius fracture. PROCEDURE: Closed reduction and application of external fixator, left forearm. INDICATIONS: The patient is a 72-year-old lady with a severely comminuted left distal radius fracture. She has underlying osteoporosis. She is markedly deconditioned. The findings and options have been explained. I have explained that open reduction with internal fixation is not an appropriate option based on her osteoporosis. This is one of the rare situations when I would recommend an external fixator. The risks and benefits were explained. She is familiar with the procedure. She states she understands and wishes to proceed. DESCRIPTION OF PROCEDURE: The patient was brought to the operating room and placed under general anesthetic. Her left upper extremity was prepped and draped in a sterile manner. A preoperative time out was performed. A [employer]hew forearm external fixation system was used throughout the case. A guide system was used to place 2 threaded pins into the shaft of the radius. A similar guide system was used to place 2 smaller pins into the 2nd metacarpal shaft. A C-arm image intensifier was available to confirm good positioning of the pins. A carbon fiber bar was affixed to a hinged connector to the pins. Distraction was applied to the distal radius. The distal radius was manipulated several times. There was pronounced dorsal comminution. A large radial styloid fragment was also unstable. Using a C-arm image intensifier, I elected to place a 0.062 K-wire into the radial styloid for further stabilization. This improved the alignment. Ultimately, we obtained an acceptable alignment of the distal radius. The severe radial shortening was improved. There was still some apex volar angulation. The pins were capped. A sterile bandage was applied. The patient was extubated and transported to the recovery room in stable condition. Blood loss was less than 5 mL. All needle and sponge counts were correct. Job#: [id number] VINICIUS
== END | disposition home or self-care (01) ==
LOC: MERGE 09:57 → OR 09:57
PROVIDERS: ATTEND Specialist
DX: S52.572A Other intraarticular fracture of lower end of left radius, initial encounter for closed fracture (principal); V49.9XXA Car occupant (driver) (passenger) injured in unspecified traffic accident, initial encounter; Y92.410 Unspecified street and highway as the place of occurrence of the external cause; M80.021D Age-related osteoporosis with current pathological fracture, right humerus, subsequent encounter for fracture with routine healing; K21.9 Gastro-esophageal reflux disease without esophagitis; I10 Essential (primary) hypertension; E11.42 Type 2 diabetes mellitus with diabetic polyneuropathy; Z79.84 Long term (current) use of oral hypoglycemic drugs; Z86.73 Personal history of transient ischemic attack (TIA), and cerebral infarction without residual deficits; E66.01 Morbid (severe) obesity due to excess calories; Z68.43 Body mass index [BMI] 50.0-59.9, adult; Z71.3 Dietary counseling and surveillance; I48.91 Unspecified atrial fibrillation; G47.33 Obstructive sleep apnea (adult) (pediatric); Z01.810 Encounter for preprocedural cardiovascular examination; Z01.812 Encounter for preprocedural laboratory examination; Z01.818 Encounter for other preprocedural examination; Z79.82 Long term (current) use of aspirin; Z88.8 Allergy status to other drugs, medicaments and biological substances; Z88.0 Allergy status to penicillin
CPT/HCPCS: 20690; 25605; 36415 ×2; 71046; 80048; 82948; 85025; 93005; C1713; J1100; J1170; J2001; J2250; J2270; J2405; J2704; 76000